=== PATIENT | female | born 1945 | race Caucasian/White ===

== ENCOUNTER 2019-05-12 17:33 | Emergency (ER) | payer MEDICARE ==
--- NOTE | 2019-05-12 18:06 | ED Physician Documentation ---
PD HPI UPPER EXT INJURY - Stated complaint Stated Complaint: LT WRIST INJ/FELL OFF STEP - Chief complaint Chief Complaint: Ext Problem - History obtained from History obtained from: Patient, Family - History of Present Illness Location: Left, Wrist Type of injury: Fall Where injury occurred: Home Timing - onset: How many hours ago (2) Timing - duration: Hours (2) Timing - details: Abrupt onset Pain level max: 6 Pain level now: 5 Improved by: Rest, Ice Worsened by: Moving, Palpating Associated symptoms: No: Weakness, Numbness, Tingling Recently seen: Not recently seen Review of Systems Constitutional: denies: Fever, Chills GI: denies: Nausea, Vomiting, Diarrhea Skin: denies: Rash Musculoskeletal: denies: Neck pain, Back pain Neurologic: denies: Headache PD PAST MEDICAL HISTORY - Past Medical History Past Medical History: Yes Cardiovascular: Hypertension Respiratory: None Neuro: None Endocrine/Autoimmune: HyPOthyroidism GI: None 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 : None HEENT: None Psych: Depression Musculoskeletal: Osteoarthritis Derm: None - Past Surgical History Past Surgical History: No - Present Medications Home Medications: Ambulatory Orders Medication Instructions Recorded Confirmed Levothyroxine [Synthroid] 100 mcg PO DAILY 07/15/15 07/16/15 - Allergies Allergies/Adverse Reactions: Allergies Allergy/AdvReac Type Severity Reaction Status Date / Time No Known Allergies Allergy Unknown Verified 05/12/19 17:40 - Social History Does the pt smoke?: No Smoking Status: Never smoker Does the pt drink ETOH?: No Does the pt have substance abuse?: No - Immunizations Immunizations are current?: Yes - POLST Patient has POLST: No PD ED PE NORMAL - Vitals Vital signs reviewed: Yes - General General: Alert and oriented X 3, No acute distress - HEENT HEENT: Moist mucous membranes - Neck Neck: Supple, no meningeal sign - Derm Derm: Warm and dry - Extremities Extremities: Other (Left wrist deformity at the distal radius. Neurovascular intact.) - Neuro Neuro: Alert and oriented X 3 - Psych Psych: Normal mood, Normal affect Results - Vitals Vitals: Oxygen O2 Source Room air - Rads (name of study) Left wrist x-ray Radiology: Prelim report reviewed, EMP read contemporaneously, See rad report (Acute comminuted impacted left distal radius fracture, intra-articular with moderate dorsal displacement and moderate to severe dorsal angulation. Acute ulnar styloid fracture, mildly displaced. Adjacent soft tissue swelling.) Left wrist x-ray NM Radiology: Prelim report reviewed, EMP read contemporaneously, See rad report (alignment not significantly changed) Procedures - Splint (location) L wrist Splint applied by: Physician, Tech Type of splint: Fiberglass, Sugar tong Other: Patient tolerated well, No complications, Neurovascular intact, Sling provided - Reduction Body part reduced: Left, Wrist Fracture or dislocation: Fracture Anesthesia: Hematoma block Reduction aftercare: NV intact, Splint applied, Unable to reduce (fragments would fall back out of place) PD MEDICAL DECISION MAKING - ED course Complexity details: re-evaluated patient, considered differential, d/w patient, d/w family ED course: Patient with a severely comminuted and impacted distal radius fracture. Fragments will not hold satisfactorily for reduction. Will likely need surgery. Orthopedics is not on-call tonight. Likely that this would be done as an outpatient anyway. Therefore she is maintained in a splint and will follow-up with orthopedics. Alignment appears clinically improved. Neurovascular intact. Patient counseled regarding signs and symptoms for which I believe and urgent re-evaluation would be necessary. Patient with good understanding of and agreement to plan and is comfortable going home at this time This document was made in part using voice recognition software. While efforts are made to proofread this document, sound alike and grammatical errors may occur. Departure - Departure Disposition: 01 Home, Self Care Clinical Impression: Distal radius fracture, left Qualifiers: Encounter type: initial encounter Fracture type: closed Fracture morphology: unspecified fracture morphology Qualified Code(s): S52.502A - Unspecified fracture of the lower end of left radius, initial encounter for closed fracture Condition: Good Instructions: ED Fx Colles Wrist Redu Requ Follow-Up: Lizzie Song PA [Primary Care Provider] - Michael Guzman MD [Provider Admit Priv/Credential] - Within 1 week Comments: You need to follow-up with orthopedic surgery within the next week. This fracture is unstable and will likely require a surgical repair. Return if you worsen. Discharge Date/Time: 05/12/19 21:10
[2019-05-12] MEDS ORDERED: BUPIVACAINE 0.25% PF 30 ML VIAL SUBQ STA (18:17)
--- NOTE | 2019-05-12 18:55 | XRAY Report ---
Reason: deformity, fall Procedure Date: 05/12/2019 Accession Number: [id number] / [id number] Procedure: XR - Wrist 4 View LT CPT Code: FULL RESULT: EXAM: LEFT WRIST RADIOGRAPHY EXAM DATE: 05/12/2019 06:14 PM. CLINICAL HISTORY: Deformity, fall. COMPARISON: None. TECHNIQUE: 4 views. FINDINGS: Acute comminuted impacted left distal radial fracture, intra-articular, with moderate dorsal displacement and moderate to severe dorsal angulation. Acute ulnar styloid fracture, mildly displaced. Adjacent soft tissue swelling. IMPRESSION: Acute comminuted impacted left distal radial fracture, intra-articular, with moderate dorsal displacement and moderate to severe dorsal angulation. Acute ulnar styloid fracture, mildly displaced. Adjacent soft tissue swelling. RADIA
--- NOTE | 2019-05-12 20:38 | XRAY Report ---
Reason: post reduction Procedure Date: 05/12/2019 Accession Number: [id number] / [id number] Procedure: XR - Wrist 2 View LT CPT Code: FULL RESULT: EXAM: LEFT WRIST RADIOGRAPHY EXAM DATE: 05/12/2019 07:55 PM. CLINICAL HISTORY: Post reduction. COMPARISON: WRIST 4 VIEW LT 05/12/2019 5:56 PM. TECHNIQUE: 2 views. FINDINGS IMPRESSION: Status post reduction with overlying cast of comminuted dorsally angulated intra-articular fracture of the distal radius and acute ulnar styloid fracture. Alignment is unchanged. RADIA
[2019-05-12 21:13] VITALS: BP 156/78
== END 2019-05-12 21:10 | disposition home or self-care (01) ==
LOC: ED 17:33
DX: S52.572A Other intraarticular fracture of lower end of left radius, initial encounter for closed fracture (principal); S52.612A Displaced fracture of left ulna styloid process, initial encounter for closed fracture; W10.8XXA Fall (on) (from) other stairs and steps, initial encounter; Y93.01 Activity, walking, marching and hiking; Y92.008 Other place in unspecified non-institutional (private) residence as the place of occurrence of the external cause; I10 Essential (primary) hypertension
CPT/HCPCS: 25605; 99283; 99284

== ENCOUNTER 2019-08-10 10:17 | Outpatient (CLI) | payer MEDICARE ==
--- NOTE | 2019-08-10 15:34 | DEXA Report ---
Reason: CLOSED FRACTURE OF DISTAL END OF RADIUS, RT Procedure Date: 08/10/2019 Accession Number: [id number] / [id number] Procedure: DEX - Dexa Spine and/or Hip CPT Code: Final Report FULL RESULT: EXAM: Dexa Spine and/or Hip DATE: 08/10/2019 11:45 AM CLINICAL HISTORY: POSTMENOPAUSAL. CLOSED FRACTURE OF DISTAL END OF RIGHT RADIUS. TECHNIQUE: Dual energy x-ray absorptiometry (DXA) was performed on a [employer] System. Regions measured are the AP Spine, femoral neck, and if needed forearm. COMPARISON: None. In accordance with the International Society for Clinical Densitometry (ISCD) guidelines, data from previous exams may be reanalyzed using current recommendations and techniques. This is done to allow a more accurate basis for comparison with the current study. FINDINGS: The data for the lumbar spine is as follows: BMD (g/cm/cm) T-SCORE Z-SCORE REGION L1 0.829 -2.5 -0.6 L2 0.977 -1.9 0.1 L3 0.971 -1.9 0.0 L4 0.944 -2.1 -0.2 TOTAL 0.934 -2.0 -0.1 NOTE: All evaluable vertebrae are used for classification The data for the hip is as follows: BMD (g/cm/cm) T-SCORE Z-SCORE REGION Neck 0.589 -3.2 -1.3 TOTAL 0.666 -2.7 -1.0 NOTE: The femoral neck or total proximal femur, whichever is lowest, is used for classification. IMPRESSION: THE WHO CLASSIFICATION BASED ON THE INTERNATIONAL REFERENCE STANDARD IS OSTEOPOROSIS. THE FRACTURE RISK IS HIGH. RECOMMENDATION: Patients with diagnosis of osteoporosis or osteopenia should have regular bone mineral density assessment. For those eligible for Medicare, routine testing is allowed once every 2 years. Testing frequency can be increased for patients who have rapidly progressing disease or for those who are receiving medical therapy to restore bone mass. COMMENT: World Health Organization (WHO) definitions for osteoporosis and osteopenia: NORMAL BMD: T-score at -1.0 or higher, fracture risk is low OSTEOPENIA BMD: T-score between -1.0 and -2.5, fracture risk is increased. OSTEOPOROSIS BMD: T-score at -2.5 or lower, fracture risk is high. National Osteoporosis Foundation recommends: 1. Obtain adequate dietary calcium (at least 1200 mg per day) and vitamin D (400-800 international units per day). 2. Participate, as appropriate, in regular weightbearing and muscle-strengthening exercise. 3. Avoid tobacco use and reduce alcohol and caffeine intake. 4. For more detailed information see the website at www.NOF.org.
--- NOTE | 2019-08-13 15:07 | DEXA Report ---
Reason: DENSITY IN SPINE Procedure Date: 08/10/2019 Accession Number: [id number] / [id number] Procedure: DEX - Dexa Forearm CPT Code: Final Report FULL RESULT: EXAM: Dexa Forearm DATE: 08/10/2019 11:49 AM CLINICAL HISTORY: POSTMENOPAUSAL. DENSITY IN SPINE TECHNIQUE: Dual energy x-ray absorptiometry (DXA) was performed on a [employer] System. Regions measured are the AP Spine, femoral neck, and if needed forearm. COMPARISON: The study is interpreted in conjunction with the DEXA measurements of the hip and lumbar spine obtained at the same time. In accordance with the International Society for Clinical Densitometry (ISCD) guidelines, data from previous exams may be reanalyzed using current recommendations and techniques. This is done to allow a more accurate basis for comparison with the current study. FINDINGS: The data for the right forearm is as follows: BMD (g/cm/cm) T-SCORE Z-SCORE REGION 1/3 0.559 -3.6 -1.6 NOTE: The 33% radius of the nondominant forearm is used for classification. IMPRESSION: THE WHO CLASSIFICATION BASED ON THE INTERNATIONAL REFERENCE STANDARD IS OSTEOPOROSIS. THE FRACTURE RISK IS HIGH. This assessment is based on bone density measurements of the hip, see separate report. RECOMMENDATION: Patients with diagnosis of osteoporosis or osteopenia should have regular bone mineral density assessment. For those eligible for Medicare, routine testing is allowed once every 2 years. Testing frequency can be increased for patients who have rapidly progressing disease or for those who are receiving medical therapy to restore bone mass. COMMENT: World Health Organization (WHO) definitions for osteoporosis and osteopenia: NORMAL BMD: T-score at -1.0 or higher, fracture risk is low OSTEOPENIA BMD: T-score between -1.0 and -2.5, fracture risk is increased. OSTEOPOROSIS BMD: T-score at -2.5 or lower, fracture risk is high. National Osteoporosis Foundation recommends: 1. Obtain adequate dietary calcium (at least 1200 mg per day) and vitamin D (400-800 international units per day). 2. Participate, as appropriate, in regular weightbearing and muscle-strengthening exercise. 3. Avoid tobacco use and reduce alcohol and caffeine intake. 4. For more detailed information see the website at www.NOF.org.
== END 2019-08-10 10:18 | disposition home or self-care (01) ==
LOC: DI 10:17
PROVIDERS: ATTEND Nurse Practitioner Family
DX: M81.0 Age-related osteoporosis without current pathological fracture (principal)
CPT/HCPCS: 77080; 77081

== ENCOUNTER 2019-08-29 08:34 | Outpatient (CLI) | payer MEDICARE | END 2019-08-29 08:35 | disposition short-term general hospital (02) | LOC: EMS 08:34 | PROVIDERS: ATTEND Surgery | DX: R55 Syncope and collapse (principal); S09.90XA Unspecified injury of head, initial encounter; R19.7 Diarrhea, unspecified; W19.XXXA Unspecified fall, initial encounter; Y92.000 Kitchen of unspecified non-institutional (private) residence as the place of occurrence of the external cause | CPT/HCPCS: A0425; A0427 ==

== ENCOUNTER 2019-09-05 12:17 | Outpatient (CLI) | payer MEDICARE | END 2019-09-06 12:18 | disposition short-term general hospital (02) | LOC: EMS 12:17 | PROVIDERS: ATTEND Surgery | DX: R55 Syncope and collapse (principal); K92.1 Melena | CPT/HCPCS: A0425; A0429 ==

== ENCOUNTER 2019-09-25 17:20 | Outpatient (CLI) | payer MEDICARE, OTHER ==
[2019-09-25 19:31] LABS: BASOPHILS % (AUTO) 0.7 %; HGB - HEMOGLOBIN 10.4 g/dL (12.0-16.0); LYMPHOCYTES # (AUTO) 0.5 10^3/uL (1.5-3.5); LYMPHOCYTES % (AUTO) 11.3 %; MEAN CORPUSCULAR HEMOGLOBIN 28.7 pg (27.0-31.0); MEAN CORPUSCULAR VOLUME 89.5 fL (81.0-99.0); MEAN PLATELET VOLUME 10.3 fL (7.9-10.8); MONOCYTES # (AUTO) 0.5 10^3/uL (0.0-1.0); MONOCYTES % (AUTO) 10.9 %; NEUTROPHILS # (AUTO) 3.3 10^3/uL (1.5-6.6); NEUTROPHILS % (AUTO) 76.6 %; PLT - PLATELET COUNT 238 10^3/uL (130-450); RED BLOOD COUNT 3.63 10^6/uL (4.20-5.40); RED CELL DISTRIBUTION WIDTH 13.5 % (12.0-15.0); WHITE BLOOD COUNT 4.3 x10^3/uL (4.8-10.8)
[2019-09-25 19:38] LABS: ALBUMIN 1.8 g/dL (3.2-5.5); ALBUMIN/GLOBULIN RATIO 0.6 (1.0-2.2); BILIRUBIN,TOTAL 0.6 mg/dL (0.2-1.0); CALCIUM 7.4 mg/dL (8.5-10.3); CREATININE 0.3 mg/dL (0.4-1.0); TOTAL PROTEIN 4.7 g/dL (6.7-8.2)
== END 2019-09-25 23:59 | disposition home or self-care (01) ==
LOC: LAB.R 17:20
DX: I10 Essential (primary) hypertension (principal); K62.5 Hemorrhage of anus and rectum
CPT/HCPCS: 80053; 85025

== ENCOUNTER 2019-10-04 10:50 | Outpatient (CLI) | payer MEDICARE, OTHER ==
[2019-10-04 11:26] LABS: CALCIUM 7.5 mg/dL (8.5-10.3); CREATININE 0.3 mg/dL (0.4-1.0)
== END 2019-10-04 23:59 | disposition home or self-care (01) ==
LOC: LAB.R 10:50
PROVIDERS: ATTEND Nurse Practitioner
DX: E87.6 Hypokalemia (principal)
CPT/HCPCS: 80048

== ENCOUNTER 2019-10-18 10:51 | Outpatient (CLI) | payer MEDICARE | END 2019-10-18 10:52 | disposition critical access hospital (66) | LOC: EMS 10:51 | PROVIDERS: ATTEND Surgery | DX: R41.82 Altered mental status, unspecified (principal) | CPT/HCPCS: A0425; A0427 ==

== ENCOUNTER 2019-10-18 11:19 | Inpatient (IN) | payer MEDICARE ==
[2019-10-18] MEDS ORDERED: SODIUM CHLORIDE 0.9% 1,000 ML IV ONE ×2 (11:25)
--- NOTE | 2019-10-18 11:39 | ED Physician Documentation ---
History of Present Illness - Stated complaint Stated Complaint: POSS STROKE - History obtained from History obtained from: EMS - History of Present Illness Timing: Today Pain level max: 0 Pain level now: 0 - Additonal information Additional information: 73-year-old female presents to the emergency department with altered mental status today. Unclear onset. Unclear what her normal baseline is. Her family is not here with her. The paramedics seems to think that this change occurred at the doctor's office, the veneer joiner states that the said she was not acting normal this morning, confused and tired. Does have a history of stroke in August. Was recently at [facility]. No fevers that they are aware of. Patient's POLST form states to attempt CPR, but goal is comfort care. 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 : None HEENT: None Psych: Depression Musculoskeletal: Osteoarthritis Derm: None - Past Surgical History Past Surgical History: No - Present Medications Home Medications: Ambulatory Orders Medication Instructions Recorded Confirmed Acetaminophen 2 tab Q6HR 10/18/19 10/18/19 Atorvastatin Calcium 1 tab DAILY 10/18/19 10/18/19 Calcium Polycarbophil 1 tab DAILY 10/18/19 10/18/19 Clopidogrel [Plavix] 1 tab DAILY 10/18/19 10/18/19 Famotidine 1 tab BID 10/18/19 10/18/19 Fluconazole 1 tab DAILY 10/18/19 10/18/19 Furosemide 1 tab DAILY 10/18/19 10/18/19 Levothyroxine [Synthroid] 1 tab DAILY 10/18/19 10/18/19 Lisinopril [Prinivil] 1 tab DAILY 10/18/19 10/18/19 Loperamide [Imodium] 1 cap DAILY PRN 10/18/19 10/18/19 Metoprolol Succinate 1 tab DAILY 10/18/19 10/18/19 Mirtazapine 0.5 tab DAILY 10/18/19 10/18/19 Ondansetron [Ondansetron Odt] 1 tab Q8HR PRN 10/18/19 10/18/19 Oxybutynin [Ditropan] 1 tab BID 10/18/19 10/18/19 Potassium Chloride 1 tab BID 10/18/19 10/18/19 Rosuvastatin Calcium 1 tab DAILY 10/18/19 10/18/19 - Allergies Allergies/Adverse Reactions: Allergies Allergy/AdvReac Type Severity Reaction Status Date / Time No Known Allergies Allergy Unknown Verified 05/12/19 17:40 - Social History Does the pt smoke?: No Smoking Status: Never smoker Does the pt drink ETOH?: No Does the pt have substance abuse?: No - Immunizations Immunizations are current?: Yes - POLST Patient has POLST: No PD ED PE NORMAL - Vitals Vital signs reviewed: Yes - General General: No acute distress, Other (Thin, frail female) - HEENT HEENT: PERRL, Other (Dry lips and tongue) - Neck Neck: Supple, no meningeal sign - Cardiac Cardiac: RRR - Respiratory Respiratory: No respiratory distress, Clear bilaterally - Abdomen Abdomen: Soft, Non tender, Non distended - Derm Derm: Warm and dry - Extremities Extremities: No edema - Neuro Neuro: Other (Eyes open) Eye Opening: Spontaneous Motor: Withdraws to Pain Verbal: Incomprehensible GCS Score: 10 Results - Vitals Vitals: Vital Signs - 24 hr 10/18/19 10/18/19 10/18/19 11:25 11:52 11:55 Temperature 37.1 C Heart Rate 119 H 116 H 122 H Respiratory 12 18 14 Rate Blood Pressure 115/54 L 115/70 126/57 L O2 Saturation 100 89 L 99 10/18/19 10/18/19 12:50 13:06 Temperature Heart Rate 122 H 122 H Respiratory 16 16 Rate Blood Pressure 100/56 L 108/64 O2 Saturation 98 98 Oxygen O2 Source Nasal cannula Oxygen Flow Rate 10 - EKG (time done) 1135 Rate: Rate (enter#) (115) Rhythm: Sinus tachycardia [place]: Normal Intervals: Normal NV QRS: Normal Ischemia: ST depression (V3-4) Compare to prior EKG: Old EKG unavailable - Labs Labs: Laboratory Tests 10/18/19 10/18/19 10/18/19 12:10 12:10 12:20 WBC RBC Hgb Hct MCV MCH MCHC RDW Plt Count MPV Neut # (Auto) Lymph # (Auto) Mathews # (Auto) Eos # (Auto) Baso # (Auto) Absolute Nucleated RBC Nucleated RBC % Manual Slide Review RBC Morph Micro Appear Sodium 130 L Potassium 6.0 H* Chloride 106 Carbon Dioxide 16 L Anion Gap 8.0 BUN 24 H Creatinine 0.5 Estimated GFR (MDRD) 121 Glucose 72 Calcium 7.5 L Total Bilirubin 1.3 H AST 22 ALT 29 Alkaline Phosphatase 235 H Troponin I High Sens 13.7 Total Protein 4.4 L Albumin 1.2 L Globulin 3.2 Albumin/Globulin Ratio 0.4 L Lipase 15 L Urine Color YELLOW Urine Clarity CLEAR Urine pH 5.5 Ur Specific Tennyson 1.020 Urine Protein NEGATIVE Urine Glucose (UA) NEGATIVE Urine Ketones TRACE Urine Occult Blood NEGATIVE Urine Nitrite NEGATIVE Urine Bilirubin NEGATIVE Urine Urobilinogen 0.2 (NORMAL) Ur Leukocyte Esterase NEGATIVE Ur Microscopic Review NOT INDICATED Urine Culture Comments NOT INDICATED 10/18/19 12:33 WBC 10.7 RBC 3.26 L Hgb 9.1 L Hct 29.2 L MCV 89.6 MCH 27.9 MCHC 31.2 L RDW 15.7 H Plt Count 198 MPV 9.9 Neut # (Auto) 10.2 H Lymph # (Auto) 0.3 L Mathews # (Auto) 0.1 Eos # (Auto) 0.0 Baso # (Auto) 0.1 Absolute Nucleated RBC 0.00 Nucleated RBC % 0.0 Manual Slide Review Indicated RBC Morph Micro Appear 1+ MACROCYTOSIS Sodium Potassium Chloride Carbon Dioxide Anion Gap BUN Creatinine Estimated GFR (MDRD) Glucose Calcium Total Bilirubin AST ALT Alkaline Phosphatase Troponin I High Sens Total Protein Albumin Globulin Albumin/Globulin Ratio Lipase Urine Color Urine Clarity Urine pH Ur Specific Tennyson Urine Protein Urine Glucose (UA) Urine Ketones Urine Occult Blood Urine Nitrite Urine Bilirubin Urine Urobilinogen Ur Leukocyte Esterase Ur Microscopic Review Urine Culture Comments - Rads (name of study) Head CT Radiology: Prelim report reviewed, EMP read contemporaneously, See rad report (Generalized age-related cortical atrophic changes without Evidence of acute intracranial abnormality) PD MEDICAL DECISION MAKING - ED course Complexity details: reviewed results, re-evaluated patient, considered brian weller, d/w b2b sales consultant ED course: Patient apparently has chronic diarrhea. Is very dehydrated. Metabolic acidosis. Hyperkalemia. Continues to have altered mental status. No acute findings on head CT. Given IV fluids. We will admit for further care. Discussed the case with Dr. Bermudez, hospitalist who accepts. Patient is also persistently tachycardic. Does improve with IV fluids. This document was made in part using voice recognition software. While efforts are made to proofread this document, sound alike and grammatical errors may occur. Departure - Departure Disposition: 66 [facility] DC/Xfer Clinical Impression: Hyperkalemia, Dehydration, Hypoglycemia, Tachycardia Altered mental status Qualifiers: Altered mental status type: unspecified Qualified Code(s): R41.82 - Altered mental status, unspecified Condition: Stable
--- NOTE | 2019-10-18 11:56 | CT Report ---
Reason: ALOC Procedure Date: 10/18/2019 Accession Number: [id number] / [id number] Procedure: CT - HEAD WO CPT Code: Final Report FULL RESULT: EXAM: CT HEAD EXAM DATE: 10/18/2019 11:34 AM. CLINICAL HISTORY: ALOC. COMPARISON: None. TECHNIQUE: Multiaxial CT images were obtained from the foramen magnum to the vertex. Reformats: Sagittal and coronal. IV contrast: None. In accordance with CT protocol optimization, one or more of the following dose reduction techniques were utilized for this exam: automated exposure control, adjustment of mA and/or KV based on patient size, or use of iterative reconstructive technique. FINDINGS: Parenchyma: No intraparenchymal hemorrhage. No evidence of mass, midline shift, or CT findings of acute infarction. Vicente-white differentiation is distinct. Hypoattenuation focally of the right solitario radiata (3/17) reflects encephalomalacia from remote insult. Diffuse chronic microangiopathic white matter changes are evident. Extraaxial Spaces: Normal for age. No subdural or epidural collections identified. Ventricles: The ventricles and cortical sulci are enlarged, consistent with age-related tissue loss. Sinuses and orbits: Imaged paranasal sinuses, orbits, and mastoids show no significant abnormality. Bones: No evidence of fracture or calvarial defect. Other: None. IMPRESSION: Generalized age-related cortical atrophic changes without evidence of acute intracranial abnormality. RADIA
[2019-10-18] MEDS ORDERED: DEXTROSE 10% 250 ML IV STA ×2 (12:11→14:31)
[2019-10-18 12:39] LABS: ALBUMIN 1.2 g/dL (3.2-5.5); ALBUMIN/GLOBULIN RATIO 0.4 (1.0-2.2); BILIRUBIN,TOTAL 1.3 mg/dL (0.2-1.0); CALCIUM 7.5 mg/dL (8.5-10.3); CREATININE 0.5 mg/dL (0.4-1.0); TOTAL PROTEIN 4.4 g/dL (6.7-8.2)
[2019-10-18 12:40] LABS: BASOPHILS # (AUTO) 0.1 10^3/uL (0.0-0.1); BASOPHILS % (AUTO) 0.7 %; EOSINOPHILS % (AUTO) 0.1 %; HGB - HEMOGLOBIN 9.1 g/dL (12.0-16.0); LYMPHOCYTES # (AUTO) 0.3 10^3/uL (1.5-3.5); LYMPHOCYTES % (AUTO) 2.4 %; MEAN CORPUSCULAR HEMOGLOBIN 27.9 pg (27.0-31.0); MEAN CORPUSCULAR HGB CONC 31.2 g/dL (32.0-36.0); MEAN CORPUSCULAR VOLUME 89.6 fL (81.0-99.0); MEAN PLATELET VOLUME 9.9 fL (7.9-10.8); MONOCYTES # (AUTO) 0.1 10^3/uL (0.0-1.0); MONOCYTES % (AUTO) 0.7 %; NEUTROPHILS # (AUTO) 10.2 10^3/uL (1.5-6.6); NEUTROPHILS % (AUTO) 95.4 %; PLT - PLATELET COUNT 198 10^3/uL (130-450); RED BLOOD COUNT 3.26 10^6/uL (4.20-5.40); RED CELL DISTRIBUTION WIDTH 15.7 % (12.0-15.0); WHITE BLOOD COUNT 10.7 x10^3/uL (4.8-10.8)
[2019-10-18 12:48] LABS: GLUCOSE, URINE (UA) NEGATIVE (NEGATIVE); KETONES,URINE (UA) TRACE mg/dL (NEGATIVE); LEUKOCYTE ESTERASE, URINE NEGATIVE (NEGATIVE); NITRITE,URINE NEGATIVE (NEGATIVE); OCCULT BLOOD,URINE NEGATIVE (NEGATIVE); PH,URINE 5.5 PH (5.0-7.5); PROTEIN,URINE NEGATIVE (NEGATIVE); UROBILINOGEN,URINE 0.2 (NORMAL) E.U./dL (NORMAL)
[2019-10-18 12:56] LABS: BILIRUBIN,URINE NEGATIVE (NEGATIVE); CLARITY,URINE CLEAR (CLEAR); ICTOTEST,URINE NEGATIVE
[2019-10-18] MEDS ORDERED: METOPROLOL SUCCINATE 50 MG TABLET PO SCH ×2 (14:19→14:34)
[2019-10-18] MEDS ORDERED: ONDANSETRON 4 MG/2 ML VIAL IVP PRN (14:24)
[2019-10-18] MEDS ORDERED: ACETAMINOPHEN 325 MG TABLET PO PRN (14:24)
[2019-10-18] MEDS ORDERED: CALCIUM GLUCONATE 1,000 MG in SODIUM CHLORIDE 0.9% 50 ML IV STA (14:29)
[2019-10-18] MEDS ORDERED: INSULIN REGULAR HUMAN 300 UNIT/3 ML VIAL IVP STA (14:29)
--- NOTE | 2019-10-18 14:41 | HISTORY & PHYSICAL EXAMINATION ---
Chief Complaint - Chief Complaint Chief Complaint: AMS History of Present Illness - History of Present Illness HPI Comment/Other: This is a 73-year-old female with a PMH significant for HTN, hypothyroidism, depression, hx of stroke, who presents to the emergency department with altered mental status. pt is alert but she did not followup command but she did response a few simple questions, she does not open her eyes. No family is at the bedside. It is unclear onset, and unclear what her normal baseline was. Per ER provider report the paramedics seems to think that this mental status change occurred at the doctor's office. pt was reported to have diarrhea for couple of days. Per ER provider report, the wrap yarn sorter report the said she was not a cting normal this morning, confused. pt has no cough, fever, chill, shortness of breath. I called pt's , and pt's daughter called me back. Her daughter is living out of this [place]. Pt's report her has been this kind of mental status for about 6 moths. pt has chronic diarrhea. pt recently lost his son and her son was very close to her. she developed depression. pt was seen by psychologist 4 times in 3 moths. pt was recently hospitalization at [facility] for 13 days. pt was tested extensively in [facility] which finally indicated pt may small stroke. Patient's POLST form states to attempt CPR, but goal is comfort care, pt's daughter request full code for her mother History - Past Medical History Cardiovascular: reports: Hypertension Respiratory: reports: None Neuro: reports: None Endocrine/Autoimmune: reports: HyPOthyroidism GI: reports: None ADVERTISING AGENT: reports: None : reports: None HEENT: reports: None Psych: reports: Depression Musculoskeletal: reports: Osteoarthritis Derm: reports: None MRSA Hx?: No - Family & Social History Family History Comment/Other: pt did not answer any questions - POLST Patient has POLST: No Meds/Allgy - Home Medications Home Medications: Ambulatory Orders Medication Instructions Recorded Confirmed Acetaminophen 2 tab Q6HR 10/18/19 10/18/19 Atorvastatin Calcium 1 tab DAILY 10/18/19 10/18/19 Calcium Polycarbophil 1 tab DAILY 10/18/19 10/18/19 Clopidogrel [Plavix] 1 tab DAILY 10/18/19 10/18/19 Famotidine 1 tab BID 10/18/19 10/18/19 Fluconazole 1 tab DAILY 10/18/19 10/18/19 Furosemide 1 tab DAILY 10/18/19 10/18/19 Levothyroxine [Synthroid] 1 tab DAILY 10/18/19 10/18/19 Lisinopril [Prinivil] 1 tab DAILY 10/18/19 10/18/19 Loperamide [Imodium] 1 cap DAILY PRN 10/18/19 10/18/19 Metoprolol Succinate 1 tab DAILY 10/18/19 10/18/19 Mirtazapine 0.5 tab DAILY 10/18/19 10/18/19 Ondansetron [Ondansetron Odt] 1 tab Q8HR PRN 10/18/19 10/18/19 Oxybutynin [Ditropan] 1 tab BID 10/18/19 10/18/19 Potassium Chloride 1 tab BID 10/18/19 10/18/19 - Allergies Allergies/Adverse Reactions: Allergies Allergy/AdvReac Type Severity Reaction Status Date / Time No Known Allergies Allergy Unknown Verified 05/12/19 17:40 Review of Systems - Other Findings Other Findings: pt did not answer questions Exam - Vital Signs Reviewed Vital Signs: Yes Vital Signs: Vital Signs x48h Temp Pulse Resp BP Pulse Ox 10/18/19 14:32 106 H 16 105/57 L 100 10/18/19 13:06 122 H 16 108/64 98 10/18/19 12:50 122 H 16 100/56 L 98 10/18/19 11:55 122 H 14 126/57 L 99 10/18/19 11:52 37.1 C 116 H 18 115/70 89 L 10/18/19 11:25 119 H 12 115/54 L 100 - Physical Exam General Appearance: positive: No acute distress, Alert, Lethargic Eyes Bilateral: positive: Normal inspection, PERRL, No lid inflammation ENT: positive: ENT inspection nml, Pharynx nml, No signs of dehydration. negative: Purulent nasal drainage Neck: positive: Nml inspection, Thyroid nml, No JVD, Trachea midline. negative: Thyromegaly, Lymphadenopathy (R), Lymphadenopathy (L), Stiff neck, Tracheal deviation Respiratory: positive: Chest non-tender, No respiratory distress, Breath sounds nml. negative: Wheezes, Rales, Rhonchi Cardiovascular: positive: Regular rate & rhythm, No murmur, No gallop, Tachycardia. negative: Irregularly irregular, Extrasystoles, Bradycardia, Systolic murmur, Diastolic murmur Peripheral Pulses: positive: 2+ Abdomen: positive: Non-tender, No organomegaly, Nml bowel sounds, No distention. negative: Tenderness, Guarding, Rebound Back: positive: Nml inspection. negative: CVA tenderness (R), CVA tenderness (L) Skin: positive: Color nml, No rash, Warm, Dry. negative: Cyanosis, Diaphoresis, Pallor Extremities: positive: Non-tender, Nml appearance. negative: Calf tenderness, Tamar's sign/cords Neurologic/Psychiatric: positive: Sensation nml. negative: Weakness, Sensory loss, Facial droop Sepsis Event Note (H) - Evaluation Current Stage of Sepsis: Ruled out Conclusion/Plan - Problem List (1) Altered mental status Conclusion/Plan: per pt's family report, pt has been on this mental status for about 6 months, did not answer question, close her eye, but pt is alert and occasionally she answer. CT of head reveals unremarkable. pt had recently family loss, depression, poor appetite, chronic diarrhea, recent stroke, all these factors can play roles plan: neuro check, consult with forensic social worker and senior geologist, start IVF for her dehydration, reconcile home meds, control her diarrhea. Qualifiers: Altered mental status type: unspecified Qualified Code(s): R41.82 - Altered mental status, unspecified (2) Hyperkalemia Conclusion/Plan: pt's potassium is 6, EKG indicate sinus tachycardia. Plan: hold pt's home potassium pill, IV of calcium gluconate, IVF of NS, recheck potassium level, will consider insulin with glucose (3) Dehydration Conclusion/Plan: pt clinic present dry mouth, and increased BUN, and chronic diarrhea. plan: start on IVF of D5 NS, lab monitor, encourage pt drink by oral (4) Hyponatremia Conclusion/Plan: Na is 130 today, pt present dehydration, it is likely caused by pt's chronic diarrhea, poor intake IVF of D5 NS, lab monitor. (5) Depression Conclusion/Plan: pt had recent loss of her son, it is very sadness for pt to overcome. will consult with forensic social worker, staff support, may consider anti-depression meds (6) Hx of stroke without residual deficits Conclusion/Plan: per family report pt had recently small stroke without residual deficits. pt has home meds Plavix, will reconcile the meds, neuro check, may consider PT/OT as needed. (7) Hypothyroidism Conclusion/Plan: will check TSH, and T4, and adjust meds as needed (8) HTN (hypertension) Conclusion/Plan: slight lower BP, will hold home BP meds, start hydration for pt. vital monitor (9) Poor appetite Conclusion/Plan: pt report pt has hx of poor appetite. will consult senior geologist, start on dysphagia now since pt has slight lethargic now. aspiration precaution (10) Chronic diarrhea Conclusion/Plan: pt's family report pt has chronic diarrhea, will closely monitor and might test C.Diff if pt continue to have diarrhea. start hydration by IV and diet (11) Hypoalbuminemia Conclusion/Plan: pt's albumin is 1.2, it is likely from pt's poor nutrition. start on IV of albumin, consult with senior geologist. lab monitor - Lab Results Fish Bones: 10/19/19 05:00 10/19/19 05:00 Core Measures - Anticipated LOS I expect patient to be DC'd or transferred within 96 hours.: Yes - DVT/VTE - Prophylaxis VTE/DVT Device ordered at admit?: Yes VTE/DVT Prophylaxis med ordered at admit?: Yes
[2019-10-18] MEDS ORDERED: SODIUM CHLORIDE 0.9% 1,000 ML IV SCH ×3 (15:00→17:58)
[2019-10-18 15:08] LABS: VBG BASE EXCESS -5.7 mmol/L (-2 - +2); VBG PCO2 37.3 mmHg (41-51); VBG PH 7.338 (7.31-7.41); VBG PO2 35.1 mmHg (25-47); VBG TOTAL CO2 20.7 mmol/L (24-29)
[2019-10-18 15:10] LABS: MUDS CUTOFF CONCENTRATIONS CUTOFF CONC BELOW:
[2019-10-18 15:16] LABS: THYROID STIMULATING HORMONE 6.46 uIU/mL (0.34-5.60)
[2019-10-18] MEDS ORDERED: MIN OIL/DIMETHICON/COCONUT OIL 92 GM TUBE TOP PRN (15:32)
[2019-10-18 15:34] LABS: AMPHETAMINE SCREEN,URINE NEGATIVE (NEGATIVE); BENZODIAZEPINES SCREEN, URINE NEGATIVE (NEGATIVE); COCAINE SCREEN URINE NEGATIVE (NEGATIVE); METHADONE SCREEN, URINE NEGATIVE (NEGATIVE); METHAMPHETAMINES SCREEN, URINE NEGATIVE (NEGATIVE); OPIATE SCREEN, URINE NEGATIVE (NEGATIVE); OXYCODONE SCREEN, URINE NEGATIVE (NEGATIVE); PROPOXYPHENE SCREEN, URINE NEGATIVE (NEGATIVE); TRICYCLIC ANTIDEPRESSANT,URINE NEGATIVE (NEGATIVE)
[2019-10-18] MEDS ORDERED: CALCIUM GLUCONATE 1,000 MG in SODIUM CHLORIDE 0.9% 50 ML IV ONE (16:00)
[2019-10-18] MEDS: ZINC OXIDE 20% OINT 30 GM TUBE TOP PRN ×2 (16:00→19:15)
[2019-10-18] MEDS: SODIUM CHLORIDE FLUSH 0.9% 10 ML SYRINGE IVP SCH (17:26)
--- NOTE | 2019-10-18 17:41 | XRAY Report ---
Reason: sob Procedure Date: 10/18/2019 Accession Number: [id number] / [id number] Procedure: XR - Chest 1 View X-Ray CPT Code: 96758 Final Report FULL RESULT: EXAM: CHEST RADIOGRAPHY EXAM DATE: 10/18/2019 05:05 PM. CLINICAL HISTORY: Shortness of breath. COMPARISON: None. TECHNIQUE: 1 view. FINDINGS: Lungs/Pleura: Lung volumes are large. There is mild hazy opacity in the left base. No other focal airspace opacities. No pleural effusion or pneumothorax by supine film. Mediastinum: Cardiomediastinal contour is mildly prominent, likely accentuated by technique and supine position. Atherosclerotic calcification of the aortic arch is present. Pulmonary vasculature is unremarkable. Other: There is a fracture of the left proximal humerus, present on the 07/02/2019 examination. IMPRESSION: 1. Hazy left basilar opacity, which may represent atelectasis or early infiltrate. 2. Large lung volumes, potentially representing underlying COPD. 3. Redemonstration of left proximal humerus fracture. [facility]
[2019-10-18] MEDS ORDERED: LEVALBUTEROL 1.25 MG/3 ML NEB INH PRN (17:59)
[2019-10-18] MEDS ORDERED: IPRATROPIUM/ALBUTEROL 3 ML NEB INH PRN (18:00)
[2019-10-18] MEDS ORDERED: AZITHROMYCIN 250 MG TABLET PO ONE (18:30)
[2019-10-18] MEDS ORDERED: cefTRIAXone 1 GM in SODIUM CHLORIDE 0.9% MINIBAG 100 ML IV SCH (18:30)
[2019-10-18] MEDS ORDERED: GI COCKTAIL 120 ML BOTTLE PO PRN (19:26)
[2019-10-18] MEDS: ACETAMINOPHEN 1,000 MG/100 ML 100 ML IV PRN (20:29)
[2019-10-18] MEDS: DEXTROSE 5%-0.9% NACL 1,000 ML IV SCH (20:44)
[2019-10-19] MEDS: SODIUM CHLORIDE FLUSH 0.9% 10 ML SYRINGE IVP SCH ×3 (00:04→17:03)
[2019-10-19] MEDS: ACETAMINOPHEN 1,000 MG/100 ML 100 ML IV PRN (03:08)
[2019-10-19] MEDS: ZINC OXIDE 20% OINT 30 GM TUBE TOP PRN ×3 (03:30→14:10)
[2019-10-19 05:44] LABS: BASOPHILS % (AUTO) 0.8 %; EOSINOPHILS % (AUTO) 0.2 %; HGB - HEMOGLOBIN 9.4 g/dL (12.0-16.0); LYMPHOCYTES % (AUTO) 1.2 %; MEAN CORPUSCULAR HEMOGLOBIN 27.9 pg (27.0-31.0); MEAN CORPUSCULAR HGB CONC 32.2 g/dL (32.0-36.0); MEAN CORPUSCULAR VOLUME 86.6 fL (81.0-99.0); MEAN PLATELET VOLUME 11.1 fL (7.9-10.8); MONOCYTES % (AUTO) 2.5 %; NEUTROPHILS % (AUTO) 93.9 %; PLT - PLATELET COUNT 147 10^3/uL (130-450); RED BLOOD COUNT 3.37 10^6/uL (4.20-5.40); RED CELL DISTRIBUTION WIDTH 15.8 % (12.0-15.0); WHITE BLOOD COUNT 11.5 x10^3/uL (4.8-10.8)
[2019-10-19 05:47] LABS: ABNORMAL LYMPHS % (MANUAL) 0 %
[2019-10-19 05:58] LABS: ALBUMIN/GLOBULIN RATIO 0.3 (1.0-2.2); BILIRUBIN,TOTAL 0.7 mg/dL (0.2-1.0); CALCIUM 7.1 mg/dL (8.5-10.3); CREATININE 0.4 mg/dL (0.4-1.0); MAGNESIUM 1.6 mg/dL (1.7-2.8); TOTAL PROTEIN 3.9 g/dL (6.7-8.2)
[2019-10-19 06:04] LABS: BAND NEUTROPHILS % (MANUAL) 11 %; LYMPHOCYTES # (MANUAL) 0.1 10^3/uL (1.5-3.5); LYMPHOCYTES % (MANUAL) 1 %
[2019-10-19 06:07] LABS: RBC MORPHOLOGY (MULTIPLE) 2+ HYPOCHROMASIA (NORMAL)
[2019-10-19 06:08] LABS: DIFFERENTIAL COMMENT MANUAL DIFFERENTIAL; PLATELET ESTIMATE, MANUAL NORMAL (130-450,000) (NORMAL); PLATELET MORPHOLOGY NORMAL APPEARANCE (NORMAL)
[2019-10-19] MEDS ORDERED: PANTOPRAZOLE 40 MG TABLET PO SCH (07:00)
[2019-10-19] MEDS ORDERED: ALBUMIN 25% 12.5 GM/50 ML VIAL IV STA (07:46)
[2019-10-19] MEDS ORDERED: LEVOTHYROXINE 125 MCG TABLET PO SCH (09:00)
[2019-10-19] MEDS ORDERED: AZITHROMYCIN 250 MG TABLET PO SCH (09:00)
[2019-10-19] MEDS ORDERED: ENOXAPARIN 40 MG/0.4 ML SYRINGE SUBQ SCH (09:00)
[2019-10-19] MEDS: DEXTROSE 5%-0.9% NACL 1,000 ML IV SCH (09:00)
[2019-10-19] MEDS ORDERED: CLOPIDOGREL 75 MG TABLET PO SCH (09:00)
[2019-10-19] MEDS ORDERED: LEVOTHYROXINE 112 MCG TABLET PO SCH (09:00)
[2019-10-19] MEDS: METOPROLOL 5 MG/5 ML VIAL IVP SCH (09:57)
[2019-10-19] MEDS ORDERED: PIPERACILLIN/TAZOBACTAM 3.375 GM in SODIUM CHLORIDE 0.9% MINIBAG 100 ML IV ONE (10:00)
[2019-10-19] MEDS ORDERED: IOVERSOL 320 100 ML VIAL IVP ONE ×2 (10:23→11:30)
--- NOTE | 2019-10-19 10:35 | PROVIDER PROGRESS NOTE ---
Subjective - Prog Note Date Prog Note Date: 10/19/19 Prog Note Time: 10:34 - Subjective Pt reports feeling: Worse Subjective: Aletha has been non-interactive, sleepy with only a few moments of alertness per nursing. Daughter, Emma has been updated twice today after learning of her acute strokes. Current Medications - Current Medications Current Medications: Active Medications: Acetaminophen (Tylenol) 650 mg PO Q4HR PRN Acetaminophen (Ofirmev) 100 mls @ 400 mls/hr IV Q6HR PRN Aspirin 325 mg ND daily Dextrose/Sodium Chloride (D5ns) 1,000 mls @ 83.333 mls/hr IV .Q12H [facility] Digoxin loading dose x3 IV, followed by a daily dose Piperacillin Sod/Tazobactam 100 mls @ 25 mls/hr IV Q8H GAYE Fluconazole (Diflucan 200 Mg/100 Ml) 100 mls @ 100 mls/hr IV DAILY [facility] Levalbuterol HCl (Xopenex) 1.25 mg INH Q4H PRN Levothyroxine Sodium (Synthroid) 125 mcg PO DAILY [facility] Metoprolol Tartrate (Lopressor Inj) 2.5 mg IVP Q6H [facility] Mineral Oil (Cavilon) 1 applic TOP PRN PRN Multi-Ingredient Mouthwash/Gargle 30 ml PO Q4H PRN Multi-Ingredient Ointment (Zinc Oxide) 1 applic TOP PRN PRN Ondansetron HCl (Zofran Inj) 4 mg IVP Q6HR PRN Pantoprazole Sodium (Protonix) 40 mg IV [facility] HOME meds: Acetaminophen 2 tab Q6HR 10/18/19 Atorvastatin Calcium 1 tab DAILY 10/18/19 Calcium Polycarbophil 1 tab DAILY 10/18/19 Clopidogrel [Plavix] 1 tab DAILY 10/18/19 Famotidine 1 tab BID 10/18/19 Fluconazole 1 tab DAILY 10/18/19 Furosemide 1 tab DAILY 10/18/19 Levothyroxine [Synthroid] 1 tab DAILY 10/18/19 Lisinopril [Prinivil] 1 tab DAILY 10/18/19 Loperamide [Imodium] 1 cap DAILY PRN 10/18/19 Metoprolol Succinate 1 tab DAILY 10/18/19 Mirtazapine 0.5 tab DAILY 10/18/19 Ondansetron [Ondansetron Odt] 1 tab Q8HR PRN 10/18/19 Oxybutynin [Ditropan] 1 tab BID 10/18/19 Potassium Chloride 1 tab BID 10/18/19 Objective - Vital Signs/Intake & Output Reviewed Vital Signs: Yes Vital Signs: Vital Signs x48h Temp Pulse Resp BP BP Pulse Ox 10/19/19 10:00 89 131/72 H 10/19/19 09:57 91 128/66 128/66 10/19/19 09:52 112 H 127/67 10/19/19 08:00 36.6 C 113 H 15 119/67 95 10/19/19 04:00 107 H 16 123/55 L 98 10/19/19 03:32 37.1 C Intake & Output: Intake & Output 10/16/19 10/17/19 10/18/19 10/19/19 23:59 23:59 23:59 23:59 Intake Total 3018.813 1043.487 Output Total 100 Balance 2918.813 1043.487 - Objective General Appearance: positive: Mild distress, Lethargic Eyes Bilateral: positive: No lid inflammation Eyes: OU Conjunctivae pale ENT: positive: Oral lesions, Dry mucous membranes Neck: positive: Lymphadenopathy (R) (mass noted, which is very painful with any palpation), Stiff neck Respiratory: positive: Chest non-tender, No respiratory distress, Other (very diminshed, bilaterally) Cardiovascular: positive: Regular rate & rhythm, Tachycardia, Systolic murmur Peripheral Pulses: 1+ Radial (R), 1+ Radial (L) Abdomen: positive: Guarding, Abnml bowel sounds (hypoactive) Back: positive: Nml inspection Skin: positive: No rash, Warm, Dry, Other (pale, bronze toned skin) Extremities: positive: No pedal edema, Joint swelling Neurologic/Psychiatric: positive: Disoriented to person, Disoriented to place, Disoriented to time, Weakness, Sensory loss, Slurred/abnml speech (no meaningful speech today) Reflexes: Bicep (R): 1+, Bicep (L): 1+ - Lab Results Fish Bones: 10/19/19 05:00 10/19/19 05:00 Other Labs: Lab Results x24hrs 03/20/20 03/20/20 03/20/20 Range/Units 05:00 05:00 05:00 WBC 11.5 H (4.8-10.8) x10^3/uL RBC 3.37 L (4.20-5.40) 10^6/uL Hgb 9.4 L (12.0-16.0) g/dL Hct 29.2 L (37.0-47.0) % MCV 86.6 (81.0-99.0) fL MCH 27.9 (27.0-31.0) pg MCHC 32.2 (32.0-36.0) g/dL RDW 15.8 H (12.0-15.0) % Plt Count 147 (130-450) 10^3/uL MPV 11.1 H (7.9-10.8) fL Neut # (Auto) Not Reportable (1.5-6.6) 10^3/uL Lymph # (Auto) Not Reportable (1.5-3.5) 10^3/uL [place] # (Auto) Not Reportable (0.0-1.0) 10^3/uL Eos # (Auto) Not Reportable (0.0-0.7) 10^3/uL Baso # (Auto) Not Reportable (0.0-0.1) 10^3/uL Absolute Nucleated RBC Not Reportable x10^3/uL Total Counted 100 Band Neuts % (Manual) 11 H (0 - 10) % Abnorm Lymph % (Manual) 0 % Nucleated RBC % Not Reportable /100WBC Neutrophils # (Manual) 11.4 H (1.5-6.6) 10^3/uL Lymphocytes # (Manual) 0.1 L (1.5-3.5) 10^3/uL Monocytes # (Manual) 0.0 (0.0-1.0) 10^3/uL Eosinophils # (Manual) 0.0 (0-0.7) 10^3/uL Basophils # (Manual) 0.0 (0-0.1) 10^3/uL Differential Comment MANUAL DIFFERENTIAL Manual Slide Review WBC Morphology NORMAL APPEARANCE (NORMAL) Platelet Estimate NORMAL (130-450,000) (NORMAL) Platelet Morphology NORMAL APPEARANCE (NORMAL) RBC Morph Micro Appear 2+ HYPOCHROMASIA (NORMAL) Whole Blood INR (0.8-1.2) VBG pH (7.31-7.41) VBG pCO2 (41-51) mmHg VBG pO2 (25-47) mmHg VBG HCO3 (23-28) mmol/L VBG Total CO2 (24-29) mmol/L VBG O2 Saturation (60-80) % VBG Base Excess (-2 - +2) mmol/L Sodium 133 L (135-145) mmol/L Potassium 4.5 (3.5-5.0) mmol/L Chloride 110 (101-111) mmol/L Carbon Dioxide 19 L (21-32) mmol/L Anion Gap 4.0 L (6-13) BUN 22 H (6-20) mg/dL Creatinine 0.4 (0.4-1.0) mg/dL Estimated GFR (MDRD) 157 (>89) Glucose 107 H (70-100) mg/dL Calcium 7.1 L (8.5-10.3) mg/dL Magnesium 1.6 L (1.7-2.8) mg/dL Total Bilirubin 0.7 (0.2-1.0) mg/dL AST 20 (10-42) IU/L ALT 26 (10-60) IU/L Alkaline Phosphatase 209 H (42-121) IU/L Ammonia (7-35) umol/L Troponin I High Sens (2.3-14.8) ng/L Total Protein 3.9 L (6.7-8.2) g/dL Albumin 1.0 L (3.2-5.5) g/dL Globulin 2.9 (2.1-4.2) g/dL Albumin/Globulin Ratio 0.3 L (1.0-2.2) Lipase (22-51) U/L Vitamin B12 (180-914) pg/mL TSH (0.34-5.60) uIU/mL Free T4 0.58 (0.58-1.64) ng/dL Urine Color Urine Clarity (CLEAR) Urine pH (5.0-7.5) PH Ur Specific [place] (1.002-1.030) Urine Protein (NEGATIVE) mg/dL Urine Glucose (UA) (NEGATIVE) mg/dL Urine Ketones (NEGATIVE) mg/dL Urine Occult Blood (NEGATIVE) Urine Nitrite (NEGATIVE) Urine Bilirubin (NEGATIVE) Urine Urobilinogen (NORMAL) E.U./dL Ur Leukocyte Esterase (NEGATIVE) Ur Microscopic Review Urine Culture Comments Nasal Screen MRSA (PCR) (NEGATIVE) Urine Opiates Screen (NEGATIVE) Ur Oxycodone Screen (NEGATIVE) Urine Methadone Screen (NEGATIVE) Ur Propoxyphene Screen (NEGATIVE) Ur Barbiturates Screen (NEGATIVE) Ur Tricyclics Screen (NEGATIVE) Ur Phencyclidine Scrn (NEGATIVE) Ur Amphetamine Screen (NEGATIVE) U Methamphetamines Scrn (NEGATIVE) U Benzodiazepines Scrn (NEGATIVE) Urine Cocaine Screen (NEGATIVE) U Cannabinoids Screen (NEGATIVE) Ethyl Alcohol mg/dL 10/18/19 10/18/19 10/18/19 Range/Units 17:32 17:20 17:20 WBC (4.8-10.8) x10^3/uL RBC (4.20-5.40) 10^6/uL Hgb (12.0-16.0) g/dL Hct (37.0-47.0) % MCV (81.0-99.0) fL MCH (27.0-31.0) pg MCHC (32.0-36.0) g/dL RDW (12.0-15.0) % Plt Count (130-450) 10^3/uL MPV (7.9-10.8) fL Neut # (Auto) (1.5-6.6) 10^3/uL Lymph # (Auto) (1.5-3.5) 10^3/uL [place] # (Auto) (0.0-1.0) 10^3/uL Eos # (Auto) (0.0-0.7) 10^3/uL Baso # (Auto) (0.0-0.1) 10^3/uL Absolute Nucleated RBC x10^3/uL Total Counted Band Neuts % (Manual) (0 - 10) % Abnorm Lymph % (Manual) % Nucleated RBC % /100WBC Neutrophils # (Manual) (1.5-6.6) 10^3/uL Lymphocytes # (Manual) (1.5-3.5) 10^3/uL Monocytes # (Manual) (0.0-1.0) 10^3/uL Eosinophils # (Manual) (0-0.7) 10^3/uL Basophils # (Manual) (0-0.1) 10^3/uL Differential Comment Manual Slide Review WBC Morphology (NORMAL) Platelet Estimate (NORMAL) Platelet Morphology (NORMAL) RBC Morph Micro Appear (NORMAL) Whole Blood INR 1.3 H (0.8-1.2) VBG pH (7.31-7.41) VBG pCO2 (41-51) mmHg VBG pO2 (25-47) mmHg VBG HCO3 (23-28) mmol/L VBG Total CO2 (24-29) mmol/L VBG O2 Saturation (60-80) % VBG Base Excess (-2 - +2) mmol/L Sodium (135-145) mmol/L Potassium 5.2 H (3.5-5.0) mmol/L Chloride (101-111) mmol/L Carbon Dioxide (21-32) mmol/L Anion Gap (6-13) BUN (6-20) mg/dL Creatinine (0.4-1.0) mg/dL Estimated GFR (MDRD) (>89) Glucose (70-100) mg/dL Calcium (8.5-10.3) mg/dL Magnesium (1.7-2.8) mg/dL Total Bilirubin (0.2-1.0) mg/dL AST (10-42) IU/L ALT (10-60) IU/L Alkaline Phosphatase (42-121) IU/L Ammonia (7-35) umol/L Troponin I High Sens (2.3-14.8) ng/L Total Protein (6.7-8.2) g/dL Albumin (3.2-5.5) g/dL Globulin (2.1-4.2) g/dL Albumin/Globulin Ratio (1.0-2.2) Lipase (22-51) U/L Vitamin B12 (180-914) pg/mL TSH (0.34-5.60) uIU/mL Free T4 (0.58-1.64) ng/dL Urine Color Urine Clarity (CLEAR) Urine pH (5.0-7.5) PH Ur Specific [place] (1.002-1.030) Urine Protein (NEGATIVE) mg/dL Urine Glucose (UA) (NEGATIVE) mg/dL Urine Ketones (NEGATIVE) mg/dL Urine Occult Blood (NEGATIVE) Urine Nitrite (NEGATIVE) Urine Bilirubin (NEGATIVE) Urine Urobilinogen (NORMAL) E.U./dL Ur Leukocyte Esterase (NEGATIVE) Ur Microscopic Review Urine Culture Comments Nasal Screen MRSA (PCR) (NEGATIVE) Urine Opiates Screen (NEGATIVE) Ur Oxycodone Screen (NEGATIVE) Urine Methadone Screen (NEGATIVE) Ur Propoxyphene Screen (NEGATIVE) Ur Barbiturates Screen (NEGATIVE) Ur Tricyclics Screen (NEGATIVE) Ur Phencyclidine Scrn (NEGATIVE) Ur Amphetamine Screen (NEGATIVE) U Methamphetamines Scrn (NEGATIVE) U Benzodiazepines Scrn (NEGATIVE) Urine Cocaine Screen (NEGATIVE) U Cannabinoids Screen (NEGATIVE) Ethyl Alcohol < 5.0 mg/dL 10/18/19 10/18/19 10/18/19 Range/Units 16:00 15:00 15:00 WBC (4.8-10.8) x10^3/uL RBC (4.20-5.40) 10^6/uL Hgb (12.0-16.0) g/dL Hct (37.0-47.0) % MCV (81.0-99.0) fL MCH (27.0-31.0) pg MCHC (32.0-36.0) g/dL RDW (12.0-15.0) % Plt Count (130-450) 10^3/uL MPV (7.9-10.8) fL Neut # (Auto) (1.5-6.6) 10^3/uL Lymph # (Auto) (1.5-3.5) 10^3/uL [place] # (Auto) (0.0-1.0) 10^3/uL Eos # (Auto) (0.0-0.7) 10^3/uL Baso # (Auto) (0.0-0.1) 10^3/uL Absolute Nucleated RBC x10^3/uL Total Counted Band Neuts % (Manual) (0 - 10) % Abnorm Lymph % (Manual) % Nucleated RBC % /100WBC Neutrophils # (Manual) (1.5-6.6) 10^3/uL Lymphocytes # (Manual) (1.5-3.5) 10^3/uL Monocytes # (Manual) (0.0-1.0) 10^3/uL Eosinophils # (Manual) (0-0.7) 10^3/uL Basophils # (Manual) (0-0.1) 10^3/uL Differential Comment Manual Slide Review WBC Morphology (NORMAL) Platelet Estimate (NORMAL) Platelet Morphology (NORMAL) RBC Morph Micro Appear (NORMAL) Whole Blood INR (0.8-1.2) VBG pH 7.338 (7.31-7.41) VBG pCO2 37.3 L (41-51) mmHg VBG pO2 35.1 (25-47) mmHg VBG HCO3 19.6 L (23-28) mmol/L VBG Total CO2 20.7 L (24-29) mmol/L VBG O2 Saturation 61.0 (60-80) % VBG Base Excess -5.7 L (-2 - +2) mmol/L Sodium (135-145) mmol/L Potassium (3.5-5.0) mmol/L Chloride (101-111) mmol/L Carbon Dioxide (21-32) mmol/L Anion Gap (6-13) BUN (6-20) mg/dL Creatinine (0.4-1.0) mg/dL Estimated GFR (MDRD) (>89) Glucose (70-100) mg/dL Calcium (8.5-10.3) mg/dL Magnesium (1.7-2.8) mg/dL Total Bilirubin (0.2-1.0) mg/dL AST (10-42) IU/L ALT (10-60) IU/L Alkaline Phosphatase (42-121) IU/L Ammonia 26.8 (7-35) umol/L Troponin I High Sens (2.3-14.8) ng/L Total Protein (6.7-8.2) g/dL Albumin (3.2-5.5) g/dL Globulin (2.1-4.2) g/dL Albumin/Globulin Ratio (1.0-2.2) Lipase (22-51) U/L Vitamin B12 (180-914) pg/mL TSH (0.34-5.60) uIU/mL Free T4 (0.58-1.64) ng/dL Urine Color Urine Clarity (CLEAR) Urine pH (5.0-7.5) PH Ur Specific [place] (1.002-1.030) Urine Protein (NEGATIVE) mg/dL Urine Glucose (UA) (NEGATIVE) mg/dL Urine Ketones (NEGATIVE) mg/dL Urine Occult Blood (NEGATIVE) Urine Nitrite (NEGATIVE) Urine Bilirubin (NEGATIVE) Urine Urobilinogen (NORMAL) E.U./dL Ur Leukocyte Esterase (NEGATIVE) Ur Microscopic Review Urine Culture Comments Nasal Screen MRSA (PCR) NEGATIVE (NEGATIVE) Urine Opiates Screen (NEGATIVE) Ur Oxycodone Screen (NEGATIVE) Urine Methadone Screen (NEGATIVE) Ur Propoxyphene Screen (NEGATIVE) Ur Barbiturates Screen (NEGATIVE) Ur Tricyclics Screen (NEGATIVE) Ur Phencyclidine Scrn (NEGATIVE) Ur Amphetamine Screen (NEGATIVE) U Methamphetamines Scrn (NEGATIVE) U Benzodiazepines Scrn (NEGATIVE) Urine Cocaine Screen (NEGATIVE) U Cannabinoids Screen (NEGATIVE) Ethyl Alcohol mg/dL 10/18/19 10/18/19 10/18/19 Range/Units 12:33 12:20 12:20 WBC 10.7 (4.8-10.8) x10^3/uL RBC 3.26 L (4.20-5.40) 10^6/uL Hgb 9.1 L (12.0-16.0) g/dL Hct 29.2 L (37.0-47.0) % MCV 89.6 (81.0-99.0) fL MCH 27.9 (27.0-31.0) pg MCHC 31.2 L (32.0-36.0) g/dL RDW 15.7 H (12.0-15.0) % Plt Count 198 (130-450) 10^3/uL MPV 9.9 (7.9-10.8) fL Neut # (Auto) 10.2 H (1.5-6.6) 10^3/uL Lymph # (Auto) 0.3 L (1.5-3.5) 10^3/uL [place] # (Auto) 0.1 (0.0-1.0) 10^3/uL Eos # (Auto) 0.0 (0.0-0.7) 10^3/uL Baso # (Auto) 0.1 (0.0-0.1) 10^3/uL Absolute Nucleated RBC 0.00 x10^3/uL Total Counted Band Neuts % (Manual) (0 - 10) % Abnorm Lymph % (Manual) % Nucleated RBC % 0.0 /100WBC Neutrophils # (Manual) (1.5-6.6) 10^3/uL Lymphocytes # (Manual) (1.5-3.5) 10^3/uL Monocytes # (Manual) (0.0-1.0) 10^3/uL Eosinophils # (Manual) (0-0.7) 10^3/uL Basophils # (Manual) (0-0.1) 10^3/uL Differential Comment Manual Slide Review Indicated WBC Morphology (NORMAL) Platelet Estimate (NORMAL) Platelet Morphology (NORMAL) RBC Morph Micro Appear 1+ MACROCYTOSIS (NORMAL) Whole Blood INR (0.8-1.2) VBG pH (7.31-7.41) VBG pCO2 (41-51) mmHg VBG pO2 (25-47) mmHg VBG HCO3 (23-28) mmol/L VBG Total CO2 (24-29) mmol/L VBG O2 Saturation (60-80) % VBG Base Excess (-2 - +2) mmol/L Sodium (135-145) mmol/L Potassium (3.5-5.0) mmol/L Chloride (101-111) mmol/L Carbon Dioxide (21-32) mmol/L Anion Gap (6-13) BUN (6-20) mg/dL Creatinine (0.4-1.0) mg/dL Estimated GFR (MDRD) (>89) Glucose (70-100) mg/dL Calcium (8.5-10.3) mg/dL Magnesium (1.7-2.8) mg/dL Total Bilirubin (0.2-1.0) mg/dL AST (10-42) IU/L ALT (10-60) IU/L Alkaline Phosphatase (42-121) IU/L Ammonia (7-35) umol/L Troponin I High Sens (2.3-14.8) ng/L Total Protein (6.7-8.2) g/dL Albumin (3.2-5.5) g/dL Globulin (2.1-4.2) g/dL Albumin/Globulin Ratio (1.0-2.2) Lipase (22-51) U/L Vitamin B12 (180-914) pg/mL TSH (0.34-5.60) uIU/mL Free T4 (0.58-1.64) ng/dL Urine Color YELLOW Urine Clarity CLEAR (CLEAR) Urine pH 5.5 (5.0-7.5) PH Ur Specific [place] 1.020 (1.002-1.030) Urine Protein NEGATIVE (NEGATIVE) mg/dL Urine Glucose (UA) NEGATIVE (NEGATIVE) mg/dL Urine Ketones TRACE (NEGATIVE) mg/dL Urine Occult Blood NEGATIVE (NEGATIVE) Urine Nitrite NEGATIVE (NEGATIVE) Urine Bilirubin NEGATIVE (NEGATIVE) Urine Urobilinogen 0.2 (NORMAL) (NORMAL) E.U./dL Ur Leukocyte Esterase NEGATIVE (NEGATIVE) Ur Microscopic Review NOT INDICATED Urine Culture Comments NOT INDICATED Nasal Screen MRSA (PCR) (NEGATIVE) Urine Opiates Screen NEGATIVE (NEGATIVE) Ur Oxycodone Screen NEGATIVE (NEGATIVE) Urine Methadone Screen NEGATIVE (NEGATIVE) Ur Propoxyphene Screen NEGATIVE (NEGATIVE) Ur Barbiturates Screen NEGATIVE (NEGATIVE) Ur Tricyclics Screen NEGATIVE (NEGATIVE) Ur Phencyclidine Scrn NEGATIVE (NEGATIVE) Ur Amphetamine Screen NEGATIVE (NEGATIVE) U Methamphetamines Scrn NEGATIVE (NEGATIVE) U Benzodiazepines Scrn NEGATIVE (NEGATIVE) Urine Cocaine Screen NEGATIVE (NEGATIVE) U Cannabinoids Screen NEGATIVE (NEGATIVE) Ethyl Alcohol mg/dL 10/18/19 10/18/19 10/18/19 Range/Units 12:10 12:10 12:10 WBC (4.8-10.8) x10^3/uL RBC (4.20-5.40) 10^6/uL Hgb (12.0-16.0) g/dL Hct (37.0-47.0) % MCV (81.0-99.0) fL MCH (27.0-31.0) pg MCHC (32.0-36.0) g/dL RDW (12.0-15.0) % Plt Count (130-450) 10^3/uL MPV (7.9-10.8) fL Neut # (Auto) (1.5-6.6) 10^3/uL Lymph # (Auto) (1.5-3.5) 10^3/uL [place] # (Auto) (0.0-1.0) 10^3/uL Eos # (Auto) (0.0-0.7) 10^3/uL Baso # (Auto) (0.0-0.1) 10^3/uL Absolute Nucleated RBC x10^3/uL Total Counted Band Neuts % (Manual) (0 - 10) % Abnorm Lymph % (Manual) % Nucleated RBC % /100WBC Neutrophils # (Manual) (1.5-6.6) 10^3/uL Lymphocytes # (Manual) (1.5-3.5) 10^3/uL Monocytes # (Manual) (0.0-1.0) 10^3/uL Eosinophils # (Manual) (0-0.7) 10^3/uL Basophils # (Manual) (0-0.1) 10^3/uL Differential Comment Manual Slide Review WBC Morphology (NORMAL) Platelet Estimate (NORMAL) Platelet Morphology (NORMAL) RBC Morph Micro Appear (NORMAL) Whole Blood INR (0.8-1.2) VBG pH (7.31-7.41) VBG pCO2 (41-51) mmHg VBG pO2 (25-47) mmHg VBG HCO3 (23-28) mmol/L VBG Total CO2 (24-29) mmol/L VBG O2 Saturation (60-80) % VBG Base Excess (-2 - +2) mmol/L Sodium 130 L (135-145) mmol/L Potassium 6.0 H* (3.5-5.0) mmol/L Chloride 106 (101-111) mmol/L Carbon Dioxide 16 L (21-32) mmol/L Anion Gap 8.0 (6-13) BUN 24 H (6-20) mg/dL Creatinine 0.5 (0.4-1.0) mg/dL Estimated GFR (MDRD) 121 (>89) Glucose 72 (70-100) mg/dL Calcium 7.5 L (8.5-10.3) mg/dL Magnesium (1.7-2.8) mg/dL Total Bilirubin 1.3 H (0.2-1.0) mg/dL AST 22 (10-42) IU/L ALT 29 (10-60) IU/L Alkaline Phosphatase 235 H (42-121) IU/L Ammonia (7-35) umol/L Troponin I High Sens 13.7 (2.3-14.8) ng/L Total Protein 4.4 L (6.7-8.2) g/dL Albumin 1.2 L (3.2-5.5) g/dL Globulin 3.2 (2.1-4.2) g/dL Albumin/Globulin Ratio 0.4 L (1.0-2.2) Lipase 15 L (22-51) U/L Vitamin B12 4569 H (180-914) pg/mL TSH 6.46 H (0.34-5.60) uIU/mL Free T4 (0.58-1.64) ng/dL Urine Color Urine Clarity (CLEAR) Urine pH (5.0-7.5) PH Ur Specific [place] (1.002-1.030) Urine Protein (NEGATIVE) mg/dL Urine Glucose (UA) (NEGATIVE) mg/dL Urine Ketones (NEGATIVE) mg/dL Urine Occult Blood (NEGATIVE) Urine Nitrite (NEGATIVE) Urine Bilirubin (NEGATIVE) Urine Urobilinogen (NORMAL) E.U./dL Ur Leukocyte Esterase (NEGATIVE) Ur Microscopic Review Urine Culture Comments Nasal Screen MRSA (PCR) (NEGATIVE) Urine Opiates Screen (NEGATIVE) Ur Oxycodone Screen (NEGATIVE) Urine Methadone Screen (NEGATIVE) Ur Propoxyphene Screen (NEGATIVE) Ur Barbiturates Screen (NEGATIVE) Ur Tricyclics Screen (NEGATIVE) Ur Phencyclidine Scrn (NEGATIVE) Ur Amphetamine Screen (NEGATIVE) U Methamphetamines Scrn (NEGATIVE) U Benzodiazepines Scrn (NEGATIVE) Urine Cocaine Screen (NEGATIVE) U Cannabinoids Screen (NEGATIVE) Ethyl Alcohol mg/dL - Diagnostic Imaging Diagnostic Imaging Results: positive: Final report reviewed Diagnostic Imaging Comments: EXAM: MRI BRAIN WITHOUT CONTRAST 10/19/2019 11:00 AM IMPRESSION: 1. Acute nonhemorrhagic infarcts subcortical right insula and right solitario radiata. 2. 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 3. Moderate diffuse cerebral volume loss and chronic microvascular angiopathy. Preliminary Echocardiogram from 10/19/2019: sigmoidal shaped septum with focal hypertrophy of the basal septum of the LV, LV size is normal, moderately impair ed LV function with an EF of 35-40%, LV septal wall exhibited a "bounce" motion. There is a moderate size echogenic structure in the RA, RVSP at rest of 39 mmHg, negative for atrial shunt with bubble study. ABX Reporting Has patient been on IV antibiotics over the past 48 hours?: Yes Sepsis Event Note (H) - Evaluation Current Stage of Sepsis: Ruled out Assessment/Plan - Problem List (1) Acute metabolic encephalopathy Impression: -Ongoing confusion -No evidence of comprehension, not talking today, no response in review of systems exam -Acute stroke today since head MRI, dehydration and possible early infection -Afebrile today, WBC was elevated on admit, now normal -Blood cultures x2 were obtained today -Monitor for infection, await cultures CVA -Head MRI confirms acute non-hemorrhagic infarcts subcortical right insula and right solitario radiate, -Multifocal chronic lacunar type infarct right solitario radiata and centrum semiovale, chronic cortical infarct right middle temporal gyrus which occurred around 08/29/2019 according to outside record review -Patient is not alert, cannot swallow today -Holding daily Plavix/ASA PO -ASA per rectum daily until patient takes PO Swelling of lymph node -Patient would not follow commands, but when right neck gland was palpated, she showed a response to pain -Maxiofacial CT did not contribute to this work up -Suspect abscess from dry mucous membranes, dysfunctional salivary glands, malnutrition, previous thrush -Started on IV Zosyn, consider more imaging if there is no improvement Dehydration -Very dry mucous membranes on exam -Tachycardia with poor heart function -Gentle IV fluids of D5 for earlier hypoglycemia Tachycardia -Heart rates up to 140, only temporary improvement after IV metoprolol -IV digoxin loading for tonight, followed by daily IV dig since patient is not taking PO -Monitor on telemetry Hyponatremia -Serum Na+ today 133 -Continues on D5 IV fluids -Routine labs Acute on chronic HFrEF -Known low side of normal prior EF of ~49%, severely dilated LV from [facility] -Now preliminary echo shows EF of 35-40%, moderately reduced LV function -Not optimally medically managed for HF, since hypovolemic -Monitor daily weights, I/Os, gentle IV fluids, and resume meds when taking PO IHSS (idiopathic hypertrophic subaortic stenosis) -Preliminary Echo shows sigmoidal shaped septum with focal hypertrophy of the basal septum of the LV -Multiple syncope episodes leading up to this admission -Now with continued tachycardia -Starting a loading dose of IV digoxin tonight followed by a daily IV dose -Dig level in the AM Pulmonary hypertension -RVSP at rest is 39 mmHg, mild -Unknown lung history, suspect COPD HTN -Not medically managed given acute dehydration with electrolyte issues -Starting IV dig, (will not influence B/P), continues on scheduled IV metoprolol -Monitor VS 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
[2019-10-19] MEDS ORDERED: FLUCONAZOLE 200 MG/100 ML 100 ML IV SCH ×2 (11:00)
--- NOTE | 2019-10-19 12:28 | MRI Report ---
Reason: acute confusion,unresponsive Procedure Date: 10/19/2019 Accession Number: [id number] / [id number] Procedure: MRI - Brain W/O CPT Code: Final Report FULL RESULT: EXAM: MRI BRAIN WITHOUT CONTRAST EXAM DATE: 10/19/2019 11:00 AM. CLINICAL HISTORY: Acute confusion, unresponsive. COMPARISON: Maxillofacial CT the same day, CT head without contrast 10/18/2019. TECHNIQUE: Multiplanar, multisequence T1-weighted and fluid-sensitive MR sequences of the brain were performed. Sequences optimized for routine evaluation. Other: None. IV Contrast: None. FINDINGS: 5 mm diffusion restriction right solitario radiata (112: 505). Few smaller 1-2 mm cortical and subcortical infarcts right insula (images 80-96 series 505). Chronic lacunar type infarcts right centrum semiovale and right solitario radiata. Chronic cortical infarct posterior right middle temporal gyrus. Major intracranial flow voids are preserved. Moderate diffuse cerebral volume loss. Moderate periventricular chronic microvascular changes. Gradient echo sequence demonstrates no focal abnormalities. Orbits, optic nerve sheath complex, chiasm, pituitary, cavernous sinus and Meckel's cave unremarkable. Marrow signal and extracranial soft tissue unremarkable. Fluid signal right mastoid air cells, nonspecific could be retained secretions. IMPRESSION: 1. Acute nonhemorrhagic infarcts subcortical right insula and right solitario radiata. 2. 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 3. Moderate diffuse cerebral volume loss and chronic microvascular angiopathy. RAD[facility] The critical result notification system was initiated by Dr. Felipe Mittal at 12:18 PM on 10/19/2019. The above critical result findings were discussed with Dr. Bermudez by Dr. Felipe Mittal at 12:26 PM on 10/19/2019.
--- NOTE | 2019-10-19 12:30 | CT Report ---
Reason: right parotid gland enlargement, pain, WBC Procedure Date: 10/19/2019 Accession Number: [id number] / [id number] Procedure: CT - MAXILLOFACIAL W/WO CPT Code: Final Report FULL RESULT: EXAM: CT MAXILLOFACIAL WITHOUT AND WITH CONTRAST EXAM DATE: 10/19/2019 11:22 AM. CLINICAL HISTORY: Right parotid gland enlargement, pain, WBC. COMPARISONS: HEAD W/O 10/18/2019 11:29 AM BRAIN W/O 10/19/2019 11:33 AM. TECHNIQUE: Thin-section axial images were acquired of the face before and after administration of intravenous contrast. Post-processing: Coronal and sagittal reformats. Other: None. IV contrast: 80 cc Optiray 320. In accordance with CT protocol optimization, one or more of the following dose reduction techniques were utilized for this exam: automated exposure control, adjustment of mA and/or KV based on patient size, or use of iterative reconstructive technique. FINDINGS: Normal left parotid gland is not observed in the left parotid fossa, could be correlated with prior left parotidectomy. Difficult to determine whether there is abnormal enhancement of the right parotid gland with lack of normal left parotid gland as a comparison. While there is no evidence for abscess, there may be diffusely increased enhancement of the right parotid gland with minimal inferior right periglandular fat stranding in keeping with right parotitis. There is no evidence for sialolithiasis. Bilateral submandibular glands appear atrophic, could be correlated with prior radiation therapy. Visualized intracranial content shows moderate diffuse cerebral volume loss. Orbits infratemporal fossa and metal hanging supervisor space, parapharyngeal space and retropharyngeal space unremarkable. Atherosclerotic calcifications of bilateral carotid bifurcations without significant stenosis. Visualized vertebral arteries appear unremarkable. Visualized oropharynx, nasopharynx, and larynx are unremarkable. Visualized vertebral arteries unremarkable. There are atherosclerotic calcifications of bilateral cavernous and supraclinoid ICAs. IMPRESSION: 1. Lack of normal left parotid gland in the visualized left parotid fossa could be correlated with prior parotidectomy or significant atrophy secondary to infection. 2. Difficult to compare enhancement pattern of right parotid gland in the absence of normal left parotid gland. However, minimal fat stranding around the inferior pole of the right parotid gland (parotid tail) could be correlated with parotitis. There is no evidence for abscess or sialolithiasis. 3. Atrophic, small appearance of bilateral submandibular glands can also be correlated with postinfectious/postinflammatory atrophy. [facility] The call report notification system was initiated by Dr. Felipe Mittal at 12:28 PM on 10/19/2019. The above call report findings were discussed with Dr. Bermudez by Dr. Felipe Mittal at 12:28 PM on 10/19/2019.
[2019-10-19] MEDS ORDERED: ASPIRIN 300 MG SUPP PR SCH (13:00)
[2019-10-19] MEDS: PIPERACILLIN/TAZOBACTAM 3.375 GM in SODIUM CHLORIDE 0.9% MINIBAG 100 ML IV SCH (16:10)
[2019-10-19] MEDS ORDERED: MAGNESIUM SULFATE 2 GRAM 2 GM/50 ML BAG IV ONE (19:03)
[2019-10-19] MEDS: PANTOPRAZOLE 40 MG VIAL IVP SCH (19:31)
[2019-10-19] MEDS: DIGOXIN 500 MCG/2 ML AMP IVP SCH (19:31)
[2019-10-19] MEDS: SODIUM CHLORIDE FLUSH 0.9% 10 ML SYRINGE IVP PRN (19:32)
[2019-10-20] MEDS ORDERED: SODIUM CHLORIDE 0.9% 500 ML IV ONE (00:07)
[2019-10-20] MEDS: METOPROLOL 5 MG/5 ML VIAL IVP SCH ×2 (00:08→05:56)
--- NOTE | 2019-10-20 01:14 | XRAY Report ---
Reason: Fever. Cough. Stroke. Procedure Date: 10/20/2019 Accession Number: [id number] / [id number] Procedure: XR - Chest 1 View X-Ray CPT Code: 65430 Final Report FULL RESULT: EXAM: CHEST RADIOGRAPHY EXAM DATE: 10/20/2019 12:45 AM. CLINICAL HISTORY: Fever. Cough. Stroke. COMPARISON: SHOULDER 2 VIEW LT 07/02/2019 2:31 PM. CHEST 1 VIEW 10/18/2019 4:48 PM. SHOULDER 3 VIEW LT 06/14/2019 10:26 AM. TECHNIQUE: 1 view. FINDINGS IMPRESSION: 1. Bilateral perihilar, peribronchial cuffing is noted. Hazy pulmonary interstitial opacity. This could be secondary to pulmonary edema. 2. New bibasilar indistinct airspace disease, left greater than right. Small bilateral effusions. 3. Subacute-appearing fracture deformity of the left proximal humerus. 4. Normal heart size when accounting for lung volumes and technique. 5. Mild biapical pleural thickening/scarring. No definite pneumothorax. Small to medium left and a small right effusion noted. [facility]
[2019-10-20] MEDS: DEXTROSE 5%-0.9% NACL 1,000 ML IV SCH (01:33)
[2019-10-20] MEDS: PIPERACILLIN/TAZOBACTAM 3.375 GM in SODIUM CHLORIDE 0.9% MINIBAG 100 ML IV SCH (01:33)
[2019-10-20] MEDS: SODIUM CHLORIDE FLUSH 0.9% 10 ML SYRINGE IVP SCH ×4 (01:33→06:13)
[2019-10-20] MEDS: DIGOXIN 500 MCG/2 ML AMP IVP SCH (01:42)
[2019-10-20] MEDS: ZINC OXIDE 20% OINT 30 GM TUBE TOP PRN (03:55)
[2019-10-20] MEDS: ACETAMINOPHEN 1,000 MG/100 ML 100 ML IV PRN (04:27)
[2019-10-20 05:01] LABS: BASOPHILS % (AUTO) 0.6 %; HGB - HEMOGLOBIN 8.8 g/dL (12.0-16.0); LYMPHOCYTES # (AUTO) 0.2 10^3/uL (1.5-3.5); LYMPHOCYTES % (AUTO) 6.9 %; MEAN CORPUSCULAR HEMOGLOBIN 28.5 pg (27.0-31.0); MEAN CORPUSCULAR HGB CONC 32.4 g/dL (32.0-36.0); MEAN PLATELET VOLUME 11.4 fL (7.9-10.8); MONOCYTES # (AUTO) 0.2 10^3/uL (0.0-1.0); MONOCYTES % (AUTO) 5.2 %; NEUTROPHILS % (AUTO) 85.9 %; PLT - PLATELET COUNT 57 10^3/uL (130-450); RED BLOOD COUNT 3.09 10^6/uL (4.20-5.40); RED CELL DISTRIBUTION WIDTH 16.2 % (12.0-15.0); WHITE BLOOD COUNT 3.5 x10^3/uL (4.8-10.8)
[2019-10-20 05:17] LABS: ALBUMIN 1.1 g/dL (3.2-5.5); ALBUMIN/GLOBULIN RATIO 0.5 (1.0-2.2); BILIRUBIN,TOTAL 0.5 mg/dL (0.2-1.0); CALCIUM 6.9 mg/dL (8.5-10.3); CREATININE 0.4 mg/dL (0.4-1.0); CRP - C-REACTIVE PROTEIN 11.8 mg/dL (0-1.0); TOTAL PROTEIN 3.3 g/dL (6.7-8.2)
[2019-10-20 05:31] LABS: DIGOXIN 0.5 ng/mL
[2019-10-20] MEDS: SODIUM CHLORIDE FLUSH 0.9% 10 ML SYRINGE IVP PRN (06:14)
[2019-10-20] MEDS: PANTOPRAZOLE 40 MG VIAL IVP SCH (06:14)
[2019-10-20] MEDS ORDERED: LORazepam 1 MG TABLET PO PRN (08:34)
[2019-10-20] MEDS ORDERED: CARBOXYMETHYLCELLULOSE OPHTH DROPS EACHEYE PRN (08:34)
[2019-10-20] MEDS ORDERED: haloperidoL 1 MG TABLET PO PRN (08:34)
[2019-10-20] MEDS ORDERED: SCOPOLAMINE PATCH TOP PRN (08:34)
[2019-10-20] MEDS ORDERED: LORazepam 2 MG/ML VIAL SUBQ PRN (08:34)
--- NOTE | 2019-10-20 08:44 | PROVIDER PROGRESS NOTE ---
Subjective - Prog Note Date Prog Note Date: 10/20/19 Prog Note Time: 08:39 - Subjective Pt reports feeling: Worse Subjective: Aletha is minimally responsive, confused not swallowing, lethargic, appears to be imminently dying. Family has been updated who wish to proceed with comfort cares, DNR/DNI. Current Medications - Current Medications Current Medications: Active Medications: Carboxymethylcellulose 1 drops EACHEYE QID PRN Haloperidol (Haldol) 1 mg PO Q6H PRN Levalbuterol HCl (Xopenex) 1.25 mg INH Q4H PRN Lorazepam (Ativan) 1 mg PO Q6H PRN Lorazepam (Ativan Inj (Vial)) 1 mg SUBQ Q6H PRN Mineral Oil (Cavilon) 1 applic TOP PRN PRN Morphine Sulfate (Roxanol) 5 mg SL Q2HR PRN Multi-Ingredient Ointment (Zinc Oxide) 1 applic TOP PRN PRN Scopolamine HBr (Transderm-Scop) 1 patch TOP Q3D PRN HOME meds: Acetaminophen 2 tab Q6HR 10/18/19 Atorvastatin Calcium 1 tab DAILY 10/18/19 Calcium Polycarbophil 1 tab DAILY 10/18/19 Clopidogrel [Plavix] 1 tab DAILY 10/18/19 Famotidine 1 tab BID 10/18/19 Fluconazole 1 tab DAILY 10/18/19 Furosemide 1 tab DAILY 10/18/19 Levothyroxine [Synthroid] 1 tab DAILY 10/18/19 Lisinopril [Prinivil] 1 tab DAILY 10/18/19 Loperamide [Imodium] 1 cap DAILY PRN 10/18/19 Metoprolol Succinate 1 tab DAILY 10/18/19 Mirtazapine 0.5 tab DAILY 10/18/19 Ondansetron [Ondansetron Odt] 1 tab Q8HR PRN 10/18/19 Oxybutynin [Ditropan] 1 tab BID 10/18/19 Potassium Chloride 1 tab BID 10/18/19 Objective - Vital Signs/Intake & Output Reviewed Vital Signs: Yes Vital Signs: Vital Signs x48h Temp Pulse Resp BP BP Pulse Ox 10/20/19 07:00 91 111/91 H 10/20/19 06:45 91 123/54 L 10/20/19 06:30 91 124/61 10/20/19 06:15 92 119/67 10/20/19 06:11 91 107/44 L 10/20/19 06:05 90 125/63 10/20/19 06:02 93 122/63 10/20/19 05:56 122/65 10/20/19 05:46 36.9 C 112 H 16 122/65 93 10/20/19 03:54 38.1 C H 124 H 18 130/63 10/20/19 01:47 113 H 15 92 10/20/19 01:38 115 H 16 122/52 L Intake & Output: Intake & Output 10/17/19 10/18/19 10/19/19 10/20/19 23:59 23:59 23:59 23:59 Intake Total 3018.813 3467.514 9184.558 Output Total 100 355 250 Balance 2918.813 7702.348 0538.558 - Objective General Appearance: positive: Alert, Moderate distress, Lethargic Eyes Bilateral: positive: No lid inflammation ENT: positive: Pharyngeal erythema, Oral lesions, Dry mucous membranes Neck: positive: Lymphadenopathy (R), Stiff neck, Swelling/bruising (swollen, painful gland to right neck) Respiratory: positive: Chest non-tender, No respiratory distress, Other (shallow breathing, diminished with scattered crackles bilaterally) Cardiovascular: positive: Regular rate & rhythm, No gallop, Tachycardia, Systolic murmur, Decreased pulse(s) Peripheral Pulses: 1+ Radial (R), 1+ Radial (L) Abdomen: positive: Abnml bowel sounds Back: positive: Nml inspection Skin: positive: No rash, Warm, Dry, Other (pale, bronze toned skin) Extremities: positive: Pedal edema (pitting to BLE ankles), Joint swelling Neurologic/Psychiatric: positive: Disoriented to person, Disoriented to place, Disoriented to time, Weakness, Sensory loss, Slurred/abnml speech, Depressed mood/affect - Lab Results Fish Bones: 10/20/19 04:45 10/20/19 04:45 Other Labs: Lab Results x24hrs 10/20/19 10/20/19 10/20/19 Range/Units 04:45 04:45 04:45 WBC (4.8-10.8) x10^3/uL RBC (4.20-5.40) 10^6/uL Hgb (12.0-16.0) g/dL Hct (37.0-47.0) % MCV (81.0-99.0) fL MCH (27.0-31.0) pg MCHC (32.0-36.0) g/dL RDW (12.0-15.0) % Plt Count (130-450) 10^3/uL MPV (7.9-10.8) fL Neut # (Auto) (1.5-6.6) 10^3/uL Lymph # (Auto) (1.5-3.5) 10^3/uL [place] # (Auto) (0.0-1.0) 10^3/uL Eos # (Auto) (0.0-0.7) 10^3/uL Baso # (Auto) (0.0-0.1) 10^3/uL Absolute Nucleated RBC x10^3/uL Nucleated RBC % /100WBC Sodium (135-145) mmol/L Potassium (3.5-5.0) mmol/L Chloride (101-111) mmol/L Carbon Dioxide (21-32) mmol/L Anion Gap (6-13) BUN (6-20) mg/dL Creatinine (0.4-1.0) mg/dL Estimated GFR (MDRD) (>89) Glucose (70-100) mg/dL Calcium (8.5-10.3) mg/dL Phosphorus (2.5-4.6) mg/dL Total Bilirubin (0.2-1.0) mg/dL AST (10-42) IU/L ALT (10-60) IU/L Alkaline Phosphatase (42-121) IU/L Troponin I High Sens 34.9 H* (2.3-14.8) ng/L C-Reactive Protein (0-1.0) mg/dL B-Natriuretic Peptide 724 H (5-100) pg/mL Total Protein (6.7-8.2) g/dL Albumin (3.2-5.5) g/dL Globulin (2.1-4.2) g/dL Albumin/Globulin Ratio (1.0-2.2) Last Dose Date UNKNOWN Last Dose Time UNKNOWN Digoxin 0.5 ng/mL 03/10/20/19 10/19/19 Range/Units 04:45 04:45 05:20 WBC 3.5 L (4.8-10.8) x10^3/uL RBC 3.09 L (4.20-5.40) 10^6/uL Hgb 8.8 L (12.0-16.0) g/dL Hct 27.2 L (37.0-47.0) % MCV 88.0 (81.0-99.0) fL MCH 28.5 (27.0-31.0) pg MCHC 32.4 (32.0-36.0) g/dL RDW 16.2 H (12.0-15.0) % Plt Count 57 L (130-450) 10^3/uL MPV 11.4 H (7.9-10.8) fL Neut # (Auto) 3.0 (1.5-6.6) 10^3/uL Lymph # (Auto) 0.2 L (1.5-3.5) 10^3/uL [place] # (Auto) 0.2 (0.0-1.0) 10^3/uL Eos # (Auto) 0.0 (0.0-0.7) 10^3/uL Baso # (Auto) 0.0 (0.0-0.1) 10^3/uL Absolute Nucleated RBC 0.00 x10^3/uL Nucleated RBC % 0.0 /100WBC Sodium 138 (135-145) mmol/L Potassium 3.7 (3.5-5.0) mmol/L Chloride 115 H (101-111) mmol/L Carbon Dioxide 18 L (21-32) mmol/L Anion Gap 5.0 L (6-13) BUN 15 (6-20) mg/dL Creatinine 0.4 (0.4-1.0) mg/dL Estimated GFR (MDRD) 157 (>89) Glucose 112 H (70-100) mg/dL Calcium 6.9 L (8.5-10.3) mg/dL Phosphorus 2.9 (2.5-4.6) mg/dL Total Bilirubin 0.5 (0.2-1.0) mg/dL AST 34 (10-42) IU/L ALT 32 (10-60) IU/L Alkaline Phosphatase 278 H (42-121) IU/L Troponin I High Sens (2.3-14.8) ng/L C-Reactive Protein 11.8 H (0-1.0) mg/dL B-Natriuretic Peptide (5-100) pg/mL Total Protein 3.3 L (6.7-8.2) g/dL Albumin 1.1 L (3.2-5.5) g/dL Globulin 2.2 (2.1-4.2) g/dL Albumin/Globulin Ratio 0.5 L (1.0-2.2) Last Dose Date Last Dose Time Digoxin ng/mL ABX Reporting Has patient been on IV antibiotics over the past 48 hours?: No Sepsis Event Note (H) - Evaluation Current Stage of Sepsis: Ruled out Assessment/Plan - Problem List (1) Acute metabolic encephalopathy Impression: -Ongoing confusion -No evidence of comprehension, not talking today, no response in review of systems exam -Acute stroke; head MRI, dehydration and possible infection -Now transitioning to comfort cares CVA -Head MRI confirms acute non-hemorrhagic infarcts subcortical right insula and right solitario radiate, -Multifocal chronic lacunar type infarct right solitario radiata and centrum semiovale, chronic cortical infarct right middle temporal gyrus which occurred around 08/29/2019 according to outside record review -Patient is not alert, cannot swallow, and appears to be actively dying -Proceed with comfort cares, DNR/DNI End of life care -Spoke with daughterEmma who has confirmed for patient to be DNR/DNI -No further invasive treatments, no labs, no IVs -Proceed with comfort cares -Urine appears dark, concentrated in coyle tubing -Imminent is predicted Swelling of lymph node -Patient would not follow commands, but when right neck gland was palpated, she showed a response to pain -Stopped IV Zosyn due to comfort cares Dehydration -Very dry mucous membranes on exam -Tachycardia with poor heart function -Gentle IV fluids of D5 stopped due to loss of access and comfort care orders Tachycardia -Heart rates up to 140, only temporary improvement after IV metoprolol -Stopped all treatments, proceed with comfort cares Hyponatremia -Stopped all treatments, proceed with comfort cares Acute on chronic HFrEF -Known low side of normal prior EF of ~49%, severely dilated LV from [facility] -Now preliminary echo shows EF of 35-40%, moderately reduced LV function -Stopped all treatments, proceed with comfort cares IHSS (idiopathic hypertrophic subaortic stenosis) -Echo shows sigmoidal shaped septum with focal hypertrophy of the basal septum of the LV -Multiple syncope episodes leading up to this admission -Now with continued tachycardia -Stopped all treatments, proceed with comfort cares Pulmonary hypertension -RVSP at rest is 39 mmHg, mild -Unknown lung history, suspect COPD HTN -Not medically managed given acute dehydration with electrolyte issues -Stopped all treatments, proceed with comfort cares Dermatosis of perineum -See chart for photos -Longstanding recurrent diarrhea -Indwelling coyle placed to protect skin Hypoalbuminemia -Very low serum albumin at 1.0 today -Stopped all treatments, proceed with comfort cares Severe protein-calorie malnutrition -Weight loss, greater than 5% in 30-days -Cachectic on exam -Stopped all treatments, proceed with comfort cares
[2019-10-20] MEDS ORDERED: polyethylene glycoL 3350 17 GM PACKET PO SCH (09:00)
[2019-10-20] MEDS ORDERED: DIGOXIN 500 MCG/2 ML AMP IVP SCH (09:00)
[2019-10-20] MEDS: MORPHINE SOL 10 MG/0.5 ML SYRINGE SL PRN ×2 (11:01→16:44)
--- NOTE | 2019-10-20 18:43 | ADVANCE CARE PLANNING NOTE ---
Advance Care Planning - Planning Encounter Date: 10/20/19 Time: 18:41 Purpose: Confirm code status to DNR/DNI, discuss end of life cares. Parties in Attendance: Prior to this discussion, I called the patient's to obtain permission to talk on the phone with their daughter, Emma, to discuss anything about the patient, which needs to be spoken about. The patient-Aletha Moreno, her daughter via speaker phone-Emma, and myself-ITALO Reed. Decisional Capacity of the Patient: The patient is no longer decisional, and cannot participate in history taking, cannot follow when asked questions, and has a poor prognosis with little hope of recovery. The patients daughter, Emma, has been given permission to speak for her mother by the patients , and Keshia father, Prashanth. - Diagnosis for Encounter (1) Acute metabolic encephalopathy Summary: -Patient has no evidence of life sustaining interactions, remains lethargic with only intermittent times of alertness - She is thought to be actively dying - Encounter Subjective/Patient's Story: Emma, the patients daughter states, her father is very upset about his , he does not want to watch his . He hopes that we understand why he does not want to see her like this. He and her mother have been together since her mom was only 17 years old, and for 56 years. Emma states, my dads life is upside down, and this has all happened so fast and suddenly. He states that his mom and dad were best friends. Emma states that when she was a little girl, her mother (the patient) would sign her songs. She states that they always had horses growing up, and she would set her up on the fence and sign to her. She was a great horseback rider, and this is really how she wants to remember her mother. She has pictures from last summer at [facility] where she was very healthy and hiking on trails. Her health has quickly declined since August 2019 when she had her first stroke. Her appetite has been very poor, and she has been gradually losing weight. She states that she knows her mother very well, and her mother would not want to live hooked up to machines or dependent on tube feedings. She confirms her mothers code status as DNR/DNI and wishes to proceed with no further treatments. Objective/Medical Story: Aletha Moreno is an ill appearing 73-year-old female with a past medical history of hypertension, hypothyroidism, chronic diarrhea, prolonged grief disorder, depression, hypoalbuminemia, severe protein calorie malnutrition, IHSS, chronic HFrEF, recurrent syncope, CVA, and falls. The patient was at a clinic appointment with her PCP, where she had a syncope episode, so was brought in via EMS for further work up. Upon initial exam the patient could not provide any history and was profoundly confused. The patients notes that his was acting a little funny earlier in the morning. Per ER provider reports, the paramedics seem to think that this mental status change occurred at the doctor's office during her syncope. The patients reported no recent cough, fevers, chills, or shortness of breath. An advanced care planning discussion was made to determine new code status given her new poor prognosis and continued profound lethargy since her recurrent CVA. Goals of Care: Goal is to provide things which are comfortable, treat pain, and allow the natural dying process. Plan: Do not restart a new IV, patient will remain with no IV access Give oral morphine for air hunger, and for pain Use PO lorazepam for anxiety Provide oral cares Q2H, saliva spray Maintain code status as DNR/DNI Code Status: Do Not Attempt Resuscitation Time spent on advance care plannin
[2019-10-20] MEDS: SALIVA STIMULANT SPRAY 44.3 ML BOTTLE PO SCH (21:14)
[2019-10-21] MEDS: SALIVA STIMULANT SPRAY 44.3 ML BOTTLE PO SCH ×7 (04:39→22:48)
[2019-10-21 07:55] VITALS: BP 118/62
[2019-10-21] MEDS: MORPHINE SOL 10 MG/0.5 ML SYRINGE SL PRN ×4 (08:17→16:47)
--- NOTE | 2019-10-21 16:10 | PROVIDER PROGRESS NOTE ---
Subjective - Prog Note Date Prog Note Date: 10/21/19 Prog Note Time: 16:07 - Subjective Pt reports feeling: Worse Subjective: Aletha appears more comfortable today, less alertness, actively dying, family has been kept up to date as requested. Current Medications - Current Medications Current Medications: Active Medications: Carboxymethylcellulose 1 drops EACHEYE QID PRN Haloperidol (Haldol) 1 mg PO Q6H PRN Levalbuterol HCl (Xopenex) 1.25 mg INH Q4H PRN Lorazepam (Ativan) 1 mg PO Q6H PRN Lorazepam (Ativan Inj (Vial)) 1 mg SUBQ Q6H PRN Mineral Oil (Cavilon) 1 applic TOP PRN PRN Morphine Sulfate (Roxanol) 5 mg SL Q2HR PRN Multi-Ingredient Ointment (Zinc Oxide) 1 applic TOP PRN PRN Saliva Substitute (Biotene Moisturizing Mouth [place]) 2 sprays PO Q4H GAYE Scopolamine HBr (Transderm-Scop) 1 patch TOP Q3D PRN HOME meds: Acetaminophen 2 tab Q6HR 10/18/19 Atorvastatin Calcium 1 tab DAILY 10/18/19 Calcium Polycarbophil 1 tab DAILY 10/18/19 Clopidogrel [Plavix] 1 tab DAILY 10/18/19 Famotidine 1 tab BID 10/18/19 Fluconazole 1 tab DAILY 10/18/19 Furosemide 1 tab DAILY 10/18/19 Levothyroxine [Synthroid] 1 tab DAILY 10/18/19 Lisinopril [Prinivil] 1 tab DAILY 10/18/19 Loperamide [Imodium] 1 cap DAILY PRN 10/18/19 Metoprolol Succinate 1 tab DAILY 10/18/19 Mirtazapine 0.5 tab DAILY 10/18/19 Ondansetron [Ondansetron Odt] 1 tab Q8HR PRN 10/18/19 Oxybutynin [Ditropan] 1 tab BID 10/18/19 Potassium Chloride 1 tab BID 10/18/19 Objective - Vital Signs/Intake & Output Reviewed Vital Signs: Yes Intake & Output: Intake & Output 10/18/19 10/19/19 10/20/19 10/21/19 23:59 23:59 23:59 23:59 Intake Total 3018.813 3271.414 4715.558 Output Total 100 355 430 240 Balance 2918.813 6909.587 6148.558 -240 - Objective General Appearance: positive: No acute distress, Lethargic, Other (nonresponsive) Eyes Bilateral: positive: No lid inflammation ENT: positive: Dry mucous membranes, Other (oozing blood after oral cares, moisturizing spray ordered) Neck: positive: Trachea midline, Lymphadenopathy (R) (reduced from earlier, stable) Respiratory: positive: No respiratory distress, Other (diminished, shallow breathing) Cardiovascular: positive: Tachycardia Peripheral Pulses: 1+ Radial (R), 1+ Radial (L) Abdomen: positive: Abnml bowel sounds Skin: positive: No rash, Warm, Dry, Pallor (cool extremitied, no mottling today) Extremities: positive: Pedal edema (dependent edema) Neurologic/Psychiatric: positive: Disoriented to person, Disoriented to place, Disoriented to time, Weakness, Sensory loss, Other (non responsive, no interaction, very sleepy, actively dying) - Lab Results Fish Bones: 10/20/19 04:45 10/20/19 04:45 Sepsis Event Note (H) - Evaluation Current Stage of Sepsis: Ruled out Assessment/Plan - Problem List (1) Acute metabolic encephalopathy Impression: -Minimally responsive -Acute stroke, now actively dying -Continue with comfort cares CVA -Head MRI confirms acute non-hemorrhagic infarcts subcortical right insula and right solitario radiate, -Multifocal chronic lacunar type infarct right solitario radiata and centrum semiovale, chronic cortical infarct right middle temporal gyrus which occurred around 08/29/2019 according to outside record review -Patient is not alert, cannot swallow, and appears to be actively dying -Continue comfort cares, DNR/DNI End of life care -Spoke with daughterEmma who has confirmed for patient to be DNR/DNI -No further invasive treatments, no labs, no IVs -Continue with comfort cares -Urine appears dark, concentrated in coyle tubing, lower total urine output, only 80 mL during day shift -No IV fluids, no PO intake for greater than 30 hours -Imminent is predicted Swelling of lymph node -Appears stable Dehydration -Very dry mucous membranes, with oral mucous membranes oozing blood, on exam -Tachycardia with poor heart function -Gentle IV fluids of D5 stopped due to loss of access and comfort care orders Tachycardia -Heart rates up to 140 -Stopped all treatments, proceed with comfort cares Hyponatremia -Stopped all treatments, proceed with comfort cares Acute on chronic HFrEF -Known low side of normal prior EF of ~49%, severely dilated LV from [facility] -Now preliminary echo shows EF of 35-40%, moderately reduced LV function -Stopped all treatments, proceed with comfort cares IHSS (idiopathic hypertrophic subaortic stenosis) -Echo shows sigmoidal shaped septum with focal hypertrophy of the basal septum of the LV -Multiple syncope episodes leading up to this admission -Stopped all treatments, proceed with comfort cares Pulmonary hypertension -RVSP at rest is 39 mmHg, mild -Unknown lung history, suspect COPD HTN -Not medically managed given acute dehydration with electrolyte issues -Stopped all treatments, proceed with comfort cares Dermatosis of perineum -See chart for photos -Longstanding recurrent diarrhea, no stools today -Indwelling coyle placed to protect skin Hypoalbuminemia -Very low serum albumin at 1.0 -Stopped all treatments, proceed with comfort cares Severe protein-calorie malnutrition -Weight loss, greater than 5% in 30-days -Cachectic on exam -Stopped all treatments, proceed with comfort cares
[2019-10-21] MEDS ORDERED: MORPHINE SOL 10 MG/0.5 ML SYRINGE SL PRN (16:44)
[2019-10-21] MEDS: ZINC OXIDE 20% OINT 30 GM TUBE TOP PRN (22:53)
[2019-10-22] MEDS: SALIVA STIMULANT SPRAY 44.3 ML BOTTLE PO SCH ×6 (02:27→23:06)
--- NOTE | 2019-10-22 17:35 | PROVIDER PROGRESS NOTE ---
Subjective - Prog Note Date Prog Note Date: 10/22/19 Prog Note Time: 17:32 - Subjective Pt reports feeling: Worse Subjective: Aletha remains unconscious and appears peaceful. Her urine output has been 0 mL, cheyes castellon breathing at times, shallow breathing, no mottling, but now with evidence of poor perfusion. She is not stable for any transport to another facility for end of life care, as she is thought to be imminently dying. Current Medications - Current Medications Current Medications: Active Medications: Carboxymethylcellulose 1 drops EACHEYE QID PRN Haloperidol (Haldol) 1 mg PO Q6H PRN Levalbuterol HCl (Xopenex) 1.25 mg INH Q4H PRN Lorazepam (Ativan) 1 mg PO Q6H PRN Lorazepam (Ativan Inj (Vial)) 1 mg SUBQ Q6H PRN Mineral Oil (Cavilon) 1 applic TOP PRN PRN Morphine Sulfate (Roxanol) 10 mg SL Q2HR PRN Multi-Ingredient Ointment (Zinc Oxide) 1 applic TOP PRN PRN Saliva Substitute (Biotene Moisturizing Mouth [place]) 2 sprays PO Q4H GAYE Scopolamine HBr (Transderm-Scop) 1 patch TOP Q3D PRN HOME meds: Acetaminophen 2 tab Q6HR 10/18/19 Atorvastatin Calcium 1 tab DAILY 10/18/19 Calcium Polycarbophil 1 tab DAILY 10/18/19 Clopidogrel [Plavix] 1 tab DAILY 10/18/19 Famotidine 1 tab BID 10/18/19 Fluconazole 1 tab DAILY 10/18/19 Furosemide 1 tab DAILY 10/18/19 Levothyroxine [Synthroid] 1 tab DAILY 10/18/19 Lisinopril [Prinivil] 1 tab DAILY 10/18/19 Loperamide [Imodium] 1 cap DAILY PRN 10/18/19 Metoprolol Succinate 1 tab DAILY 10/18/19 Mirtazapine 0.5 tab DAILY 10/18/19 Ondansetron [Ondansetron Odt] 1 tab Q8HR PRN 10/18/19 Oxybutynin [Ditropan] 1 tab BID 10/18/19 Potassium Chloride 1 tab BID 10/18/19 Objective - Vital Signs/Intake & Output Reviewed Vital Signs: Yes Intake & Output: Intake & Output 10/19/19 10/20/19 10/21/19 10/22/19 23:59 23:59 23:59 23:59 Intake Total 9594.941 2317.558 Output Total 355 430 290 175 Balance 4342.712 3740.558 -290 -175 - Objective General Appearance: positive: No acute distress, Other (unresponsive) Eyes Bilateral: positive: No lid inflammation ENT: positive: Dry mucous membranes, Other (blooding oozing is less, with less discomfort during oral cares) Neck: positive: Trachea midline, Stiff neck Respiratory: positive: Rhonchi (shallowed, labored, poor breath sounds) Cardiovascular: positive: Irregularly irregular, Tachycardia, Systolic murmur, Diastolic murmur, Decreased pulse(s) Abdomen: positive: Abnml bowel sounds Skin: positive: Warm, Cyanosis (cool extremities, purple nail beds, no mottling), Pallor Neurologic/Psychiatric: positive: Other (unresponsive, actively dying) - Lab Results Fish Bones: 10/20/19 04:45 10/20/19 04:45 ABX Reporting Has patient been on IV antibiotics over the past 48 hours?: No Sepsis Event Note (H) - Evaluation Current Stage of Sepsis: Ruled out Assessment/Plan - Problem List (1) Acute metabolic encephalopathy Impression: -Minimally responsive -Acute stroke, now actively dying -Continue with comfort cares CVA -Head MRI confirms acute non-hemorrhagic infarcts subcortical right insula and right solitario radiate, -Multifocal chronic lacunar type infarct right solitario radiata and centrum semiovale, chronic cortical infarct right middle temporal gyrus which occurred around 08/29/2019 according to outside record review -Patient is not alert, cannot swallow, and appears to be actively dying -Continue comfort cares, DNR/DNI End of life care -Spoke with daughterEmma who has confirmed for patient to be DNR/DNI -No further invasive treatments, no labs, no IVs -Continue with comfort cares -Urine appears dark, concentrated in coyle tubing, lower total urine output, only 80 mL during day shift -No IV fluids, no PO intake for greater than 30 hours -Imminent is predicted Swelling of lymph node -Appears stable Dehydration -Very dry mucous membranes, with oral mucous membranes oozing blood, on exam -Tachycardia with poor heart function -Gentle IV fluids of D5 stopped due to loss of access and comfort care orders Tachycardia -Heart rates up to 140 -Stopped all treatments, proceed with comfort cares Hyponatremia -Stopped all treatments, proceed with comfort cares Acute on chronic HFrEF -Known low side of normal prior EF of ~49%, severely dilated LV from [facility] -Now preliminary echo shows EF of 35-40%, moderately reduced LV function -Stopped all treatments, proceed with comfort cares IHSS (idiopathic hypertrophic subaortic stenosis) -Echo shows sigmoidal shaped septum with focal hypertrophy of the basal septum of the LV -Multiple syncope episodes leading up to this admission -Stopped all treatments, proceed with comfort cares Pulmonary hypertension -RVSP at rest is 39 mmHg, mild -Unknown lung history, suspect COPD HTN -Not medically managed given acute dehydration with electrolyte issues -Stopped all treatments, proceed with comfort cares Dermatosis of perineum -See chart for photos -Longstanding recurrent diarrhea, no stools today -Indwelling coyle placed to protect skin Hypoalbuminemia -Very low serum albumin at 1.0 -Stopped all treatments, proceed with comfort cares Severe protein-calorie malnutrition -Weight loss, greater than 5% in 30-days
[2019-10-23] MEDS: SALIVA STIMULANT SPRAY 44.3 ML BOTTLE PO SCH (03:09)
--- NOTE | 2019-10-23 04:36 | Discharge Plan ---
Discharge Plan Problem Reviewed?: Yes Disposition: 20 No Smoking: If you smoke, Please STOP! Call for help.
--- NOTE | 2019-10-23 06:59 | DISCHARGE SUMMARY ---
"Discharge Summary Admit Date: 10/18/19 Discharge Date: 10/23/19 Discharging Provider: Jerel Garcia Primary Care Provider: Magdalene Lechuga Code Status: Do Not Attempt Resuscitation Discharge Disposition: 20 - DIAGNOSES Admission Diagnoses: Altered mental status Hypokalemia Dehydration Hyponatremia Depression History of stroke without residual deficits Hypothyroidism Hypertension Poor appetite Chronic diarrhea Hypoalbuminemia Discharge Diagnoses with Status of Each Condition: Encephalopathy Cerebrovascular accident End-of-life care Dehydration Chronic heart failure reduced ejection fraction Idiopathic hypertrophic subaortic stenosis Pulmonary hypertension Hypertension Severe protein calorie malnutrition - HPI History of Present Illness: H&P per ITALO Frey on 10/18/2019: This is a 73-year-old female with a PMH significant for HTN, hypothyroidism, depression, hx of stroke, who presents to the emergency department with altered mental status. pt is alert but she did not followup command but she did response a few simple questions, she does not open her eyes. No family is at the bedside. It is unclear onset, and unclear what her normal baseline was. Per ER provider report the paramedics seems to think that this mental status change occurred at the doctor's office. pt was reported to have diarrhea for couple of days. Per ER provider report, the furniture lumber production worker report the said she was not acting normal this morning, confused. pt has no cough, fever, chill, shortness of breath. I called pt's , and pt's daughter called me back. Her daughter is living out of this [place]. Pt's report her has been this kind of mental status for about 6 moths. pt has chronic diarrhea. pt recently lost his son and her son was very close to her. she developed depression. pt was seen by psychologist 4 times in 3 moths. pt was recently hospitalization at [place] for 13 days. pt was tested extensively in [place] which finally indicated pt may small stroke. Patient's POLST form states to attempt CPR, but goal is comfort care, pt's daughter request full code for her mother - CONSULTS | PROCEDURES Consultations: Social Work Procedures: Echocardiogram. Brain MRI. Faciaal bones CT. - HOSPITAL COURSE Hospital Course: She is admitted to the hospital for acute encephalopathy and dehydration which is presumed secondary to chronic diarrhea. She was hydrated with IV fluids with improvement in her sodium. Her mental status did not improve despite hydration. Initial CT of the head was unremarkable. She appeared to have significant facial pain and so a CT of the facial bones was obtained. There is no abscess or fluid collection but There was evidence of a lack of a normal left parotid gland which may be due to a prior parotidectomy or atrophy due to infection. She had already been started on IV Zosyn prior to imaging. A brain MRI was then obtained Which showed new acute nonhemorrhagic infarcts in the subcortical right insula and right solitario radiata. There was also evidence of multifocal chronic lacunar type infarcts. The patient remained encephalopathic during the hospitalization and was increasingly noninteractive with only a few moments of alertness at times. The findings of the MRI of the brain were discussed with the patient's daughter, Emma. A Decision was made on October 19 to pursue comfort measures. All antibiotics and IV fluids were discontinued. She started on morphine and Ativan as needed. Scopolamine patch was started as well. The pat ieearl on October 22 at 4:20 AM. I notified Emma of her mother's passing. Her and her were going to notify Aletha's . - ALLERGIES Allergies/Adverse Reactions: Allergies Allergy/AdvReac Type Severity Reaction Status Date / Time No Known Allergies Allergy Unknown Verified 05/12/19 17:40 - MEDICATIONS Home Medications: Ambulatory Orders Medication Instructions Recorded Confirmed Acetaminophen 2 tab Q6HR 10/18/19 10/18/19 Atorvastatin Calcium 1 tab DAILY 10/18/19 10/18/19 Calcium Polycarbophil 1 tab DAILY 10/18/19 10/18/19 Clopidogrel [Plavix] 1 tab DAILY 10/18/19 10/18/19 Famotidine 1 tab BID 10/18/19 10/18/19 Fluconazole 1 tab DAILY 10/18/19 10/18/19 Furosemide 1 tab DAILY 10/18/19 10/18/19 Levothyroxine [Synthroid] 1 tab DAILY 10/18/19 10/18/19 Lisinopril [Prinivil] 1 tab DAILY 10/18/19 10/18/19 Loperamide [Imodium] 1 cap DAILY PRN 10/18/19 10/18/19 Metoprolol Succinate 1 tab DAILY 10/18/19 10/18/19 Mirtazapine 0.5 tab DAILY 10/18/19 10/18/19 Ondansetron [Ondansetron Odt] 1 tab Q8HR PRN 10/18/19 10/18/19 Oxybutynin [Ditropan] 1 tab BID 10/18/19 10/18/19 Potassium Chloride 1 tab BID 10/18/19 10/18/19 - PHYSICAL EXAM AT DISCHARGE Eyes Bilateral: positive: Other (Pupils fixed and dilatted.) Respiratory: positive: Other (No breath sounds present.) Cardiovascular: positive: Other (No heart sounds present.) Peripheral Pulses: positive: 0 - LABS Result Diagrams: 10/20/19 04:45 10/20/19 04:45 - SEPSIS Current Stage of Sepsis: Ruled out"
== END 2019-10-23 04:20 | disposition expired | DRG 64 ==
LOC: EDUNIT# → ED 11:19 → ICU 14:24 → MS2 10-19 18:38 → MS3 10-19 18:55 → OBSVTOIN 10-22 13:19
PROVIDERS: ADMIT Nurse Practitioner Gerontology; ATTEND Internal Medicine
DX: I63.9 Cerebral infarction, unspecified (principal); E43 Unspecified severe protein-calorie malnutrition; G93.41 Metabolic encephalopathy; I50.23 Acute on chronic systolic (congestive) heart failure; Z68.1 Body mass index [BMI] 19.9 or less, adult; E87.1 Hypo-osmolality and hyponatremia; I42.1 Obstructive hypertrophic cardiomyopathy; I11.0 Hypertensive heart disease with heart failure; E16.2 Hypoglycemia, unspecified; E87.2 Acidosis; I27.20 Pulmonary hypertension, unspecified; E86.0 Dehydration; K52.9 Noninfective gastroenteritis and colitis, unspecified; F32.9 Major depressive disorder, single episode, unspecified; E03.9 Hypothyroidism, unspecified; R13.10 Dysphagia, unspecified; R59.0 Localized enlarged lymph nodes; L98.9 Disorder of the skin and subcutaneous tissue, unspecified; Z51.5 Encounter for palliative care; R47.9 Unspecified speech disturbances; Z66 Do not resuscitate; Z79.899 Other long term (current) drug therapy; Z79.02 Long term (current) use of antithrombotics/antiplatelets; Z63.4 Disappearance and death of family member; Z51.81 Encounter for therapeutic drug level monitoring
CPT/HCPCS: 36415; 51701; 70450; 70488; 70551; 71045; 80053; 80162; 81003; 82140; 82607; 82803; 83690; 83735; 83880; 84100; 84132; 84439; 84443; 84484; 85025; 85610; 86140; 87040; 87150; 93005; 93306; 96361; 96374; 99285; A6250; A9270; J0131; J3490; J7040; J8499; P9047; Q9967; 80306; 80307; 80320; 81001; 87086